=== PATIENT | female | born 1980 | race Caucasian/White ===

== ENCOUNTER → 2016-06-24 | Outpatient (REF) | payer OTHER ==
[~2016-06-24] MED LIST: FISH500C PO; OMEP20CA3 PO; PULM90IN INH; VITA100041 PO; VITMTA PO
== END ==
LOC: M LAB REF 10:12
PROVIDERS: ATTEND Physician Assistant
DX: J02.9 Acute pharyngitis, unspecified (principal)

== ENCOUNTER → 2016-07-21 | Outpatient (REF) | payer OTHER ==
[2016-07-21 11:42] LABS: ALBUMIN/GLOBULIN RATIO 1.14 (1.00-1.93); ALKALINE PHOSPHATASE 54 U/L (45-117); ALT/SGPT 22 U/L (12-78); ANION GAP 8 MEQ/L (8-16); AST/SGOT 13 U/L (15-37); BILIRUBIN,TOTAL 0.7 MG/DL (0.2-1.0); BLOOD UREA NITROGEN 8 MG/DL (7-18); CALCIUM LEVEL 9.3 MG/DL (8.5-10.1); CARBON DIOXIDE LEVEL 28 MEQ/L (21-32); CHLORIDE LEVEL 105 MEQ/L (98-107); CREATININE FOR GFR 0.77 MG/DL (0.55-1.02); GLOMERULAR FILTRATION RATE > 60.0 (>60); GLUCOSE, FASTING 99 MG/DL (70-105); POTASSIUM SERUM 4.2 MEQ/L (3.5-5.1); SODIUM LEVEL 141 MEQ/L (136-145); TOTAL PROTEIN 7.5 GM/DL (6.4-8.2)
== END ==
LOC: M SFHCPLAZ 09:37
PROVIDERS: ATTEND Nurse Practitioner Family
DX: I10 Essential (primary) hypertension (principal); E55.9 Vitamin D deficiency, unspecified

== ENCOUNTER → 2016-09-08 | Outpatient (CLI) | payer OTHER ==
[2016-09-08 14:44] LABS: BASO # 0.1 K/mm3 (0.0-0.2); EOS # 0.3 K/mm3 (0.0-0.50); EOS % 3.9 % (0.0-3.0); LARGE UNSTAINED CELL # 0.1 K/mm3 (0.0-0.4); LARGE UNSTAINED CELL % 1.4 % (0.0-4.0); LYMPH # 2.8 K/mm3 (1.5-4.5); LYMPH % 30.7 % (24.0-44.0); MEAN CORPUSCULAR HGB CONC 33.9 g/dl (32.0-36.5); MEAN CORPUSCULAR VOLUME 88.4 fl (80.0-96.0); MONO # 0.4 K/mm3 (0.0-0.8); MONO % 4.8 % (0.0-5.0); NEUTROPHILS # 5.1 K/mm3 (1.8-7.7); NEUTROPHILS % 58.2 % (36.0-66.0); PLATELET COUNT, AUTOMATED 259 k/mm3 (150-450); RED CELL DISTRIBUTION WIDTH 13.3 % (11.5-14.5); WHITE BLOOD COUNT 8.7 K/mm3 (4.0-10.0)
[2016-09-08 15:03] LABS: ANION GAP 7 MEQ/L (8-16); BLOOD UREA NITROGEN 15 MG/DL (7-18); CALCIUM LEVEL 8.8 MG/DL (8.5-10.1); CARBON DIOXIDE LEVEL 29 MEQ/L (21-32); CHLORIDE LEVEL 104 MEQ/L (98-107); CREATININE FOR GFR 0.77 MG/DL (0.55-1.02); GLOMERULAR FILTRATION RATE > 60.0 (>60); GLUCOSE, FASTING 92 MG/DL (70-105); POTASSIUM SERUM 3.8 MEQ/L (3.5-5.1); SODIUM LEVEL 140 MEQ/L (136-145)
== END ==
LOC: M LAB 14:01
PROVIDERS: ATTEND Nurse Practitioner Family
DX: K62.5 Hemorrhage of anus and rectum (principal)

== ENCOUNTER → 2016-09-08 | Outpatient (REF) | payer OTHER | LOC: M SFHCPLAZ 12:04 | PROVIDERS: ATTEND Nurse Practitioner Family | DX: K62.5 Hemorrhage of anus and rectum (principal) ==

== ENCOUNTER → 2017-07-26 | Outpatient (REF) | payer OTHER ==
[2017-07-26 13:24] LABS: ANION GAP 7 MEQ/L (8-16); BLOOD UREA NITROGEN 12 MG/DL (7-18); CALCIUM LEVEL 9.1 MG/DL (8.5-10.1); CARBON DIOXIDE LEVEL 27 MEQ/L (21-32); CHLORIDE LEVEL 107 MEQ/L (98-107); CREATININE FOR GFR 0.86 MG/DL (0.55-1.30); GLOMERULAR FILTRATION RATE > 60.0 (>60); GLUCOSE, FASTING 103 MG/DL (70-100); POTASSIUM SERUM 4.1 MEQ/L (3.5-5.1); SODIUM LEVEL 141 MEQ/L (136-145)
== END ==
LOC: M SFHCPLAZ 11:33
DX: I10 Essential (primary) hypertension (principal)

== ENCOUNTER → 2017-12-13 | Outpatient (REF) | payer OTHER ==
[2017-12-13 13:44] LABS: BASO % 0.7 % (0.0-1.0); EOS # 0.2 10^3/uL (0.0-0.50); EOS % 2.9 % (0.0-3.0); HEMATOCRIT 41.2 % (36.0-47.0); HEMOGLOBIN 13.7 g/dl (12.0-15.5); IMMATURE GRANULOCYTE % 0.2 % (0-3.0); LYMPH # 2.2 10^3/uL (1.5-4.5); LYMPH % 37.3 % (24.0-44.0); MEAN CORPUSCULAR HEMOGLOBIN 28.3 pg (27.0-33.0); MEAN CORPUSCULAR HGB CONC 33.3 g/dl (32.0-36.5); MEAN CORPUSCULAR VOLUME 85.1 fl (80.0-96.0); MONO # 0.5 10^3/uL (0.0-0.8); MONO % 8.8 % (0.0-5.0); NEUTROPHILS # 2.9 10^3/uL (1.8-7.7); NEUTROPHILS % 50.1 % (36.0-66.0); PLATELET COUNT, AUTOMATED 316 10^3/uL (150-450); RED BLOOD COUNT 4.84 10^6/uL (4.00-5.40); RED CELL DISTRIBUTION WIDTH 14.1 % (11.5-14.5); WHITE BLOOD COUNT 5.8 10^3/uL (4.0-10.0)
[2017-12-13 14:12] LABS: ALBUMIN 3.5 GM/DL (3.2-5.2); ALBUMIN/GLOBULIN RATIO 0.88 (1.00-1.93); ALKALINE PHOSPHATASE 57 U/L (45-117); ALT/SGPT 27 U/L (12-78); ANION GAP 7 MEQ/L (8-16); AST/SGOT 11 U/L (7-37); BILIRUBIN,TOTAL 0.4 MG/DL (0.2-1.0); BLOOD UREA NITROGEN 9 MG/DL (7-18); CALCIUM LEVEL 9.2 MG/DL (8.5-10.1); CARBON DIOXIDE LEVEL 28 MEQ/L (21-32); CHLORIDE LEVEL 107 MEQ/L (98-107); GLOMERULAR FILTRATION RATE > 60.0 (>60); GLUCOSE, FASTING 115 MG/DL (70-100); POTASSIUM SERUM 4.2 MEQ/L (3.5-5.1); SODIUM LEVEL 142 MEQ/L (136-145); TOTAL PROTEIN 7.5 GM/DL (6.4-8.2)
== END ==
LOC: M SFHCPLAZ 12:34
DX: N73.9 Female pelvic inflammatory disease, unspecified (principal)

== ENCOUNTER → 2017-12-13 | Outpatient (REF) | payer OTHER ==
[2017-12-13 17:45] LABS: CHLAMYDIA DNA AMPLIFICATION NEGATIVE (NEGATIVE); GC DNA AMPLIFICATION NEGATIVE (NEGATIVE)
== END ==
LOC: M SFHCPLAZ 15:13
DX: N73.9 Female pelvic inflammatory disease, unspecified (principal)
CPT/HCPCS: 87086

== ENCOUNTER → 2017-12-13 | Outpatient (CLI) | payer OTHER ==
[~2017-12-13] MED LIST changes: -FISH500C PO; +GASTROGRAFIN SOLUTION 30ML (Q9963) As Ordered; +ISOVUE-370 76% 100ML VIAL (Q9967) As Ordered; -OMEP20CA3 PO; -PULM90IN INH; -VITA100041 PO; -VITMTA PO
== END ==
LOC: M RAD 14:03
DX: R10.2 Pelvic and perineal pain (principal)
CPT/HCPCS: Q9963

== ENCOUNTER → 2017-12-14 | Outpatient (REF) | payer OTHER | LOC: M LAB REF 09:52 | DX: R19.7 Diarrhea, unspecified (principal) | CPT/HCPCS: 87507 ==

== ENCOUNTER → 2018-01-25 | Outpatient (CLI) | payer OTHER | LOC: M RAD 09:37 | DX: N83.202 Unspecified ovarian cyst, left side (principal) | CPT/HCPCS: 76856 ==

== ENCOUNTER → 2018-02-17 | Outpatient (REF) | payer OTHER ==
[2018-02-17 12:59] LABS: ESTIMATED AVERAGE GLUCOSE 117 MG/DL (60-110); HEMOGLOBIN A1c 5.7 %
[2018-02-17 15:48] LABS: ALBUMIN 4.3 GM/DL (3.2-5.2); ALKALINE PHOSPHATASE 50 U/L (45-117); ALT/SGPT 25 U/L (12-78); ANION GAP 9 MEQ/L (8-16); AST/SGOT 12 U/L (7-37); BILIRUBIN,TOTAL 0.8 MG/DL (0.2-1.0); BLOOD UREA NITROGEN 10 MG/DL (7-18); CALCIUM LEVEL 9.4 MG/DL (8.5-10.1); CARBON DIOXIDE LEVEL 25 MEQ/L (21-32); CHLORIDE LEVEL 106 MEQ/L (98-107); CHOLESTEROL LEVEL 210 MG/DL (<200); CHOLESTEROL RISK RATIO 4.666 (<5); CREATININE FOR GFR 0.74 MG/DL (0.55-1.30); GLOMERULAR FILTRATION RATE > 60.0 (>60); GLUCOSE, FASTING 103 MG/DL (70-100); HDL CHOLESTEROL 45 MG/DL (>40); LDL CHOLESTEROL 120 MG/DL (<100); NON-HDL-C 165 MG/DL; POTASSIUM SERUM 4.4 MEQ/L (3.5-5.1); SODIUM LEVEL 140 MEQ/L (136-145); TOTAL 25(OH) VITAMIN D 29.6 NG/ML (30.0-100.0); TOTAL PROTEIN 7.6 GM/DL (6.4-8.2); TRIGLYCERIDES LEVEL 225 MG/DL (<150)
== END ==
LOC: M SFHCPLAZ 08:40
DX: I10 Essential (primary) hypertension (principal); Z83.3 Family history of diabetes mellitus; E66.9 Obesity, unspecified
CPT/HCPCS: 80053

== ENCOUNTER → 2018-06-19 | Outpatient (REF) | payer OTHER ==
[~2018-06-19] MED LIST changes: +FISH500C PO; -GASTROGRAFIN SOLUTION 30ML (Q9963) As Ordered; +IBUP-1022 PO; -ISOVUE-370 76% 100ML VIAL (Q9967) As Ordered; +LISI10TA4 PO; +OMEP20CA3 PO; +PULM90IN INH; +TYLE325T5 PO; +VITA-182 PO; +VITMTA PO
== END ==
LOC: M LAB REF 17:19
PROVIDERS: ATTEND Obstetrics & Gynecology
DX: N93.9 Abnormal uterine and vaginal bleeding, unspecified (principal)

== ENCOUNTER 2018-07-24 07:55 | Day surgery (SDC) | payer OTHER ==
[~2018-07-24] VITALS: Ht 157.5 cm; Wt 85.0 kg
[2018-07-24] VITALS (8 sets, daily range): BP systolic 124–132; BP diastolic 69–86; O2SAT 95
[~2018-07-24 07:55] MED LIST changes: +LIDOCAINE 1% MDV 20ML VIAL SQ PRN; +LR 1,000 ML IV ONE
[2018-07-24 08:26] LABS: HEMATOCRIT 39.9 % (36.0-47.0); HEMOGLOBIN 13.1 g/dl (12.0-15.5); MEAN CORPUSCULAR HEMOGLOBIN 28.2 pg (27.0-33.0); MEAN CORPUSCULAR HGB CONC 32.8 g/dl (32.0-36.5); MEAN CORPUSCULAR VOLUME 85.8 fl (80.0-96.0); PLATELET COUNT, AUTOMATED 286 10^3/uL (150-450); RED BLOOD COUNT 4.65 10^6/uL (4.00-5.40); WHITE BLOOD COUNT 7.7 10^3/uL (4.0-10.0)
[2018-07-24] MEDS ORDERED: fentaNYL 250 MCG/5 ML INJECTION (J3010) As Ordered ONE (08:34)
[2018-07-24] MEDS ORDERED: MIDAZOLAM INJ 2 MG/2 ML VIAL (J2250) As Ordered ONE (08:34)
[2018-07-24] MEDS ORDERED: PROPOFOL 200 MG/20 ML VIAL As Ordered ONE (08:34)
[2018-07-24] MEDS ORDERED: LIDOCAINE 2% INJ 100 MG/5 ML SDV (FOR ANES.) As Ordered ONE (08:34)
[2018-07-24] MEDS ORDERED: ROCURONIUM BROMIDE 50 MG/5 ML VIAL As Ordered ONE ×2 (08:34→11:14)
[2018-07-24 09:20] LABS: HCG, SERUM QUALITATIVE NEGATIVE (NEGATIVE)
[2018-07-24] MEDS ORDERED: BUPIVACAINE HCL 0.25% 30 ML VIAL As Ordered ONE (10:24)
[2018-07-24] MEDS ORDERED: METHYLENE BLUE 0.5% (5MG/ML) 10 ML AMP (PROVAYBLUE)(Q9968 PER 1MG) As Ordered ONE (10:24)
[2018-07-24] MEDS ORDERED: dexameTHASONE 4 MG/ML 1ML VIAL (J1100) As Ordered ONE (10:38)
[2018-07-24] MEDS ORDERED: HYDROmorphone HCL 2 MG/ML 1ML VIAL (J1170) As Ordered ONE (10:53)
[2018-07-24] MEDS ORDERED: METOCLOPRAMIDE INJ 10MG/2ML VIAL (J2765) As Ordered ONE (11:12)
[2018-07-24] MEDS ORDERED: KETOROLAC 60 MG/2 ML VIAL (J1885) As Ordered ONE (11:13)
[2018-07-24] MEDS ORDERED: ONDANSETRON 4MG/2ML VIAL (J2405) As Ordered ONE (11:13)
[2018-07-24] MEDS ORDERED: GLYCOPYRROLATE INJ 0.2 MG/ML 2 ML VIAL As Ordered ONE (11:13)
--- NOTE | 2018-07-24 13:13 | NUR ---
Operative Note DATE OF PROCEDURE: 07/24/2018 PREOPERATIVE DIAGNOSIS: 1. Abnormal uterine bleeding. POSTOPERATIVE DIAGNOSIS: 1. Abnormal uterine bleeding. 2. Endometriosis PROCEDURE PERFORMED: Robotic-assisted total laparoscopic hysterectomy, bilateral salpingectomy and cystoscopy. SURGEON: Jalil Moctezuma DO. ELECTRIC SCREW DRIVER OPERATOR: RUSH Goff (needed for uterine manipulation). ANESTHESIA: General endotracheal. SPECIMENS TO PATHOLOGY: Uterus, cervix with bilateral fallopian tubes ESTIMATED BLOOD LOSS: 50 mL. FLUIDS REPLACED: 1.6 liters lactated Ringer's. DRAINS: Clements catheter 200 mL. COMPLICATIONS: None. PREOPERATIVE ANTIBIOTICS: Ancef 2g IV x 1 (administered within 30 minutes of procedure start time) INTRAOPERATIVE FINDINGS: Uterus was approximately cm in greatest dimension. The uterus was of normal shape/contour (no leiomyomas). The right and left ovaries were normal in appearance. Endometriosis was found in the anterior cul-de-sac along the surface of the cervix. Both fallopian tube proximal segments were filled with endometriotic fluid. Cystoscopic findings: No bladder injury. No suture material. Bilateral ureteral orifice efflux visualized after IV infusion of methylene blue. INDICATION: Abnormal uterine bleeding, declining further medical management or more conservative surgical management (i.e endometrial ablation) PROCEDURE: The patient was counseled and consented on the risks, benefits, indications, and alternatives of the procedure. Informed consent was obtained. She was take n to the operating room with an IV running and placed on the operating table in the dorsal supine position. General anesthesia was administered and airway secured without any difficulty. The patient was placed in a level horizontal low lithotomy position. She was prepped and draped in a normal sterile fashion. A time-out was performed per protocol. A Clements catheter was placed under sterile conditions. A sterile speculum was placed into the vagina with go od visualization of the cervix. The anterior lip of the cervix was grasped with a single-tooth tenaculum and downward traction was applied. The uterus was sounded to 10 cm. The cervix was sequentially dilated with Emory dilators up to #16. The anterior and posterior lip were tagged with and interrupted stitch using #0 Vicryl suture. The VCare uterine manipulator was placed in typical fashion without any difficulty. The single-toothed tenaculum was removed. The sterile speculum was removed. The VCare uterine manipulator was noted to be adequately in place. A glove switch was performed. Attention was turned to the abdomen. A 2 mm umbilical incision was made with the 11 blade. The Veress needle was placed through this incision into the intraperitoneal cavity. Intraperitoneal placement was confirmed with the following checks: no resistance/ease of flow of normal saline from the attached syringe through the Veress needle, no return of blood/fluid/succus upon aspirating with the attached syringe, a positive drop test, and the opening pressure during insufflation was less than 10 mmHg. The abdomen was insufflated with 2.5 liters of gas. The Veress needle was removed. An 8 mm horizontal midline, supraumbilical incision was made with the 11 blade. Through this incision, a size 8 mm laparoscopic trocar was placed under direct visualization technique into the intraperitoneal cavity. Intraperitoneal placement was confirmed. The patient was placed in a low lithotomy steep Trendelenberg position. The right and left lower quadrant port sites were placed via 8 mm incisions using the 11 blade. The 8 mm da Regis cannulas were placed under laparoscopic guidance on both sides. Given the successful placement of all the DaVinci cannulas, the robot was easily side-docked. Attention was turned to the Optracei robotic console. The right and left distal fallopian tubes were identified and excised with the Da Regis vessel sealer instrument, thus removing both fimbriated ends of each fallopian tube. These specimens were brought through the accessory cannula and sent to pathology for permanent section. The right fallopian tube, utero-ovarian ligament, and round ligament were sequentially clamped, coagulated and transected with the DaVinci vessel sealer device. The Da Regis vessel sealer was used to dissect and mobilize the right-sided half of the vesicouterine peritoneum/"bladder flap" with both blunt and bipolar dissection. The right uterine vasculature was skeletonized and identified. Excellent hemostasis was achieved. The left fallopian tube, utero-ovarian ligament and round ligament were sequentially clamped, coagulated and transected using the Da Regis vessel sealer device. The left uterine vasculature was skeletonized and easily identified. Excellent hemostasis was noted. The remainder of the vesicouterine peritoneum was dissected and mobilized along the anterior portion of the VCare uterine manipulator cup in order to complete the bladder flap. This resulted in adequate mobilization/displacement of the bladder away from the cervix. During all of the dissection described above, an occasional small bleeding vessel needed to be cauterized with the DaVinci bipolar forceps. The right and left uterine vasculature were sequentially clamped, coagulated and transected with both DaVinci bipolar forceps and vessel sealer instruments. Excellent blanching of the uterus was noted, thus indicating that the blood supply to the uterus was obliterated. Excellent hemostasis was noted. The DaVinci monopolar bryan were used to create the circumferential colpotomy around the VCare cervical cup border. Incidental small bleeding vaginal vessels were cauterized with the DaVinci bipolar forceps. This circumferential incision was completed and the uterus with the cervix was noted to be fully amputated as one unit. This specimen was brought through the colpotomy into the vagina, and ultimately removed and sent to pathology for permanent section. The vaginal cuff was closed in running fashion with V-Loc suture. Excellent hemostasis of the vaginal cuff was noted. The lower abdomen/pelvis was irrigated and suctioned, thus removing all blood and clot. Excellent hemostasis was noted. Pranay was placed over the surgical sites to maintain hemostasis. The insufflation gas was released from the intraperitoneal cavity. All cannula s were removed. The robot was un-docked without any difficulty. The patient was taken out of steep Trendelenburg and placed back into a level horizontal low lithotomy position. The Clements catheter was removed. A 30 degree cystoscope was placed transurethrally into the bladder. The entire bladder mucosa was examined. There was no evidence of a bladder injury or suture material. Brisk bilateral ureteral orifice efflux of urine was visualized after IV infusion of methylene blue. The cystoscope was removed and the Clements catheter was replaced. The vagina was copiously irrigated. The vaginal cuff was palpated and noted to be intact. The sponge, needle, and instrument counts were correct. A glove switch was performed. Attention was turned back to the abdomen. Patient was taken out of T renatrium [place]. The gas was released from the abdomen. The cannulas were all removed. Each skin incision was closed with #4-0 Monocryl in subcuticular fashi on and reinforced with Dermabond. Sponge, needle, and instrument counts were again correct. The patient tolerated the entire procedure well. She was transferred to the postanesthesia care unit in good and stable condition. Nancy Moctezuma DO
[2018-07-24] MEDS ORDERED: PERCOCET 5MG/325MG TAB PO PRN ×2 (13:15→15:00)
[2018-07-24] MEDS ORDERED: HYDROMORPHONE HCL 0.5 MG/ 0.5 ML SYRINGE (J1170 PER 1) IV PRN (13:15)
[2018-07-24] MEDS ORDERED: fentaNYL 100 MCG/2 ML INJECTION (J3010) IV PRN (13:15)
[2018-07-24] MEDS ORDERED: LR 1,000 ML IV SCH (13:15)
[2018-07-24] MEDS ORDERED: ONDANSETRON 4MG/2ML VIAL (J2405) IV PRN ×2 (13:15→15:00)
[2018-07-24] MEDS ORDERED: PROMETHAZINE INJ 25 MG/ML VIAL (J2550) IV PRN (15:00)
[2018-07-24] MEDS: LR 1,000 ML IV SCH ×2 (15:23→23:00)
[2018-07-24] MEDS: PERCOCET 5MG/325MG TAB PO PRN (16:57)
[2018-07-24] MEDS: KETOROLAC 30 MG/ML VIAL (J1885) IV SCH (18:45)
[2018-07-24] MEDS: OMEPRAZOLE 20 MG CAP PO SCH (20:18)
[2018-07-24] MEDS: DOCUSATE SODIUM 100 MG CAP PO SCH (20:18)
[2018-07-25] MEDS: KETOROLAC 30 MG/ML VIAL (J1885) IV SCH ×2 (00:49→05:54)
[2018-07-25] MEDS: PERCOCET 5MG/325MG TAB PO PRN ×2 (00:50→05:54)
[2018-07-25 02:00] VITALS: BP 128/72
[2018-07-25 06:00] VITALS: BP 117/67
[2018-07-25] MEDS: LR 1,000 ML IV SCH (07:00)
[2018-07-25 07:06] LABS: BASO # 0.1 10^3/uL (0.0-0.2); BASO % 0.6 % (0.0-1.0); EOS # 0.1 10^3/uL (0.0-0.50); EOS % 0.8 % (0.0-3.0); LYMPH # 2.9 10^3/uL (1.5-4.5); LYMPH % 28.1 % (24.0-44.0); MEAN CORPUSCULAR HEMOGLOBIN 27.5 pg (27.0-33.0); MEAN CORPUSCULAR HGB CONC 32.5 g/dl (32.0-36.5); MEAN CORPUSCULAR VOLUME 84.7 fl (80.0-96.0); MONO # 0.8 10^3/uL (0.0-0.8); MONO % 8.1 % (0.0-5.0); NEUTROPHILS # 6.4 10^3/uL (1.8-7.7); NEUTROPHILS % 62.2 % (36.0-66.0); PLATELET COUNT, AUTOMATED 235 10^3/uL (150-450); RED BLOOD COUNT 3.78 10^6/uL (4.00-5.40); WHITE BLOOD COUNT 10.3 10^3/uL (4.0-10.0)
[2018-07-25 07:09] LABS: HEMOGLOBIN 10.4 g/dl (12.0-15.5)
[2018-07-25 08:39] VITALS: BP 117/67
[2018-07-25] MEDS: OMEPRAZOLE 20 MG CAP PO SCH (08:39)
[2018-07-25] MEDS: DOCUSATE SODIUM 100 MG CAP PO SCH (08:39)
[2018-07-25] MEDS ORDERED: LISINOPRIL 10 MG TAB PO SCH (09:00)
[2018-07-25] MEDS ORDERED: PERC5TAB12 PO (09:35)
[2018-07-25] MEDS ORDERED: PERCOCET PO (09:36)
[2018-07-25] MEDS ORDERED: IBUP80TA PO (09:37)
[2018-07-25] MEDS ORDERED: COLA100C5 PO (09:37)
[2018-07-25] MEDS ORDERED: IBUPROFEN 800 MG TAB PO SCH (21:00)
== END 2018-07-25 10:40 | disposition home or self-care (01) ==
LOC: M SDC 07:55 → M MS5PR 14:05 → M SDC 07-25 10:40
PROVIDERS: ATTEND Obstetrics & Gynecology
DX: N92.6 Irregular menstruation, unspecified (principal); N80.0 Endometriosis of uterus; I10 Essential (primary) hypertension; K21.9 Gastro-esophageal reflux disease without esophagitis; Z88.0 Allergy status to penicillin; Z79.899 Other long term (current) drug therapy
CPT/HCPCS: 36415; 58571; 84703; 85025; 85027; 86850; 86900; 86901; 88307; 96374; 96375; 96376; J0690; J1100; J1170; J1885; J2250; J2405; J2765; J3010; Q9968

== ENCOUNTER → 2018-08-28 | Outpatient (CLI) | payer OTHER ==
[~2018-08-28] MED LIST changes: +COLA100C5 PO; +IBUP80TA PO; -LIDOCAINE 1% MDV 20ML VIAL SQ PRN; -LR 1,000 ML IV ONE; +PERC5TAB12 PO; +PERCOCET PO
[2018-08-28 13:04] LABS: ALT/SGPT 23 U/L (12-78); BILIRUBIN,TOTAL 0.6 MG/DL (0.2-1.0); BLOOD UREA NITROGEN 9 MG/DL (7-18); CALCIUM LEVEL 8.7 MG/DL (8.5-10.1); CARBON DIOXIDE LEVEL 26 MEQ/L (21-32); CHLORIDE LEVEL 108 MEQ/L (98-107); CHOLESTEROL LEVEL 190 MG/DL (<200); CHOLESTEROL RISK RATIO 4.318 (<5); CREATININE FOR GFR 0.85 MG/DL (0.55-1.30); FREE T4 1.14 NG/DL (0.76-1.46); GLOMERULAR FILTRATION RATE > 60.0 (>60); GLUCOSE, FASTING 109 MG/DL (70-100); HDL CHOLESTEROL 44 MG/DL (>40); LDL CHOLESTEROL 130 MG/DL (<100); NON-HDL-C 146 MG/DL; POTASSIUM SERUM 4.3 MEQ/L (3.5-5.1); SODIUM LEVEL 138 MEQ/L (136-145); THYROID STIMULATING HORMONE 0.711 uIU/ML (0.358-3.740); TOTAL PROTEIN 7.2 GM/DL (6.4-8.2); TRIGLYCERIDES LEVEL 81 MG/DL (<150)
[2018-08-28 14:04] LABS: TOTAL 25(OH) VITAMIN D 32.1 NG/ML (30.0-100.0)
[2018-08-28 14:12] LABS: HEMOGLOBIN A1c 6.2 %
== END ==
LOC: M WUC 09:09
PROVIDERS: ATTEND Nurse Practitioner Family
DX: I10 Essential (primary) hypertension (principal); E88.81 Metabolic syndrome and other insulin resistance

== ENCOUNTER → 2018-11-24 | Outpatient (CLI) | payer OTHER ==
[~2018-11-24] MED LIST changes: -OMEP20CA3 PO; +OMEP20CA4 PO
[2018-11-24 13:40] LABS: HEMOGLOBIN A1c 6.2 %
[2018-11-24 13:46] LABS: BLOOD UREA NITROGEN 9 MG/DL (7-18); CALCIUM LEVEL 8.9 MG/DL (8.5-10.1); CARBON DIOXIDE LEVEL 27 MEQ/L (21-32); CHLORIDE LEVEL 107 MEQ/L (98-107); CREATININE FOR GFR 0.84 MG/DL (0.55-1.30); GLOMERULAR FILTRATION RATE > 60.0 (>60); GLUCOSE, FASTING 89 MG/DL (70-100); POTASSIUM SERUM 4.3 MEQ/L (3.5-5.1); SODIUM LEVEL 142 MEQ/L (136-145)
[2018-11-24 17:47] LABS: MALB URINE SIEMENS 9.6 MG/L; MAU/CREAT RATIO 7.8 MCG/MG (0.0-30.0)
== END ==
LOC: M WUC 08:45
PROVIDERS: ATTEND Nurse Practitioner Family
DX: R73.03 Prediabetes (principal); I10 Essential (primary) hypertension

== ENCOUNTER → 2019-02-28 | Outpatient (CLI) | payer OTHER ==
[2019-02-28 19:17] LABS: BLOOD UREA NITROGEN 12 MG/DL (7-18); CALCIUM LEVEL 9.1 MG/DL (8.5-10.1); CARBON DIOXIDE LEVEL 29 MEQ/L (21-32); CHLORIDE LEVEL 105 MEQ/L (98-107); CREATININE FOR GFR 0.84 MG/DL (0.55-1.30); GLOMERULAR FILTRATION RATE > 60.0 (>60); GLUCOSE, FASTING 94 MG/DL (70-100); POTASSIUM SERUM 4.1 MEQ/L (3.5-5.1); SODIUM LEVEL 138 MEQ/L (136-145)
[2019-02-28 19:29] LABS: TOTAL 25(OH) VITAMIN D 35.6 NG/ML (30.0-100.0)
== END ==
LOC: M LAB 16:50
PROVIDERS: ATTEND Nurse Practitioner Family
DX: E55.9 Vitamin D deficiency, unspecified (principal); I10 Essential (primary) hypertension; R73.03 Prediabetes

== ENCOUNTER → 2019-03-08 | Outpatient (CLI) | payer OTHER ==
[2019-03-08 20:04] LABS: HEMOGLOBIN A1c 5.9 %
== END ==
LOC: M LAB 18:18
PROVIDERS: ATTEND Nurse Practitioner Family
DX: E55.9 Vitamin D deficiency, unspecified (principal); I10 Essential (primary) hypertension; R73.03 Prediabetes

== ENCOUNTER 2019-05-30 19:34 | Day surgery (SDC) | payer OTHER ==
[~2019-05-30] VITALS: Ht 157.5 cm; Wt 81.1 kg
[~2019-05-30 19:34] MED LIST changes: +OMEP1CAP73 PO; -OMEP20CA4 PO
[2019-05-30] MEDS ORDERED: DOXY100C37 (19:47)
[2019-05-30] MEDS ORDERED: GLUCAGON FOR INJ 1 MG VIAL (J1610) IV STA (22:10)
[2019-05-30] MEDS ORDERED: ALBUTEROL 90 MCG/ACT 8GM HFA INHALER INH ONE (23:30)
[2019-05-31] MEDS ORDERED: LIDOCAINE 2% INJ 100 MG/5 ML SDV (FOR ANES.) As Ordered ONE (00:20)
[2019-05-31] MEDS ORDERED: propofoL 200 MG/20 ML VIAL As Ordered ONE (00:20)
[2019-05-31] MEDS ORDERED: SUCCINYLCHOLINE 100 MG/5 ML SYRINGE (J0330) As Ordered ONE (00:20)
[2019-05-31] MEDS ORDERED: ONDANSETRON 4MG/2ML VIAL (J2405) As Ordered ONE (00:20)
[2019-05-31] MEDS ORDERED: ROCURONIUM BROMIDE 50 MG/5 ML VIAL As Ordered ONE (00:20)
[2019-05-31] MEDS ORDERED: MIDAZOLAM INJ 2 MG/2 ML VIAL (J2250) As Ordered ONE (00:21)
[2019-05-31] MEDS ORDERED: fentaNYL 100 MCG/2 ML INJECTION (J3010) As Ordered ONE (00:21)
[2019-05-31] MEDS ORDERED: DOXY100C37 PO (01:00)
[2019-05-31] MEDS ORDERED: LISI10TA4 PO (01:00)
[2019-05-31] MEDS ORDERED: FLON1SPR (01:01)
[2019-05-31] MEDS ORDERED: ONDANSETRON 4MG/2ML VIAL (J2405) IV PRN (01:30)
[2019-05-31] MEDS ORDERED: LR 1,000 ML IV SCH (01:30)
[2019-05-31] MEDS ORDERED: METOCLOPRAMIDE INJ 10MG/2ML VIAL (J2765) IV PRN (01:30)
[2019-05-31 02:00] VITALS: BP 128/84
[2019-05-31] MEDS ORDERED: OMEPRAZOLE 20 MG CAP PO SCH (09:00)
--- NOTE | 2019-05-31 12:18 | REP ---
Clinical: Foreign body. Technique: Three soft tissue neck radiographs. Findings: The visualized airway, surrounding soft tissues and osseous structures appear normal. No obvious injury. No obvious foreign body. No subcutaneous emphysema. Focal moderate degenerative spondylosis at C5-6 and C6-7. Impression: No foreign body. Electronically Signed by Gregorio Watikns MD 05/31/2019 12:10 P
--- NOTE | 2019-05-31 18:53 | ROOR ---
Patient Name: Jasmine Linda Procedure Date: 05/31/2019 12:51 AM Date of : 1980 Age: 39 Gender: Female Note Status: Finalized Procedure: Upper GI endoscopy Indications: Foreign body in the esophagus Providers: Jeffery Aguirre MD Referring MD: Reid ROSADO MD Requesting Provider: Medicines: Monitored Anesthesia Care Complications: No immediate complications. Procedure: Pre-Anesthesia Assessment: - The heart rate, respiratory rate, oxygen saturations, blood pressure, adequacy of pulmonary ventilation, and response to care were monitored throughout the procedure. The Endoscope was introduced through the mouth, and advanced to the second part of duodenum. The upper GI endoscopy was accomplished without difficulty. The patient tolerated the procedure well. Findings: Food was found in the proximal esophagus. Removal of food was accomplished. Meat bolus was pushed into the stomach from 25 cms. Mucosal changes including ringed esophagus were found in the entire esophagus. Esophageal findings were graded using the Eosinophilic Esophagitis Endoscopic Reference Score (EoE-EREFS) as: Rings Grade 2 Moderate (distinct rings that do not occlude passage of diagnostic 8-10 mm endoscope), Exudates Grade 0 None (no white lesions seen) and Furrows Grade 0 None (no vertical lines seen). No other significant abnormalities were identified in a careful examination of the stomach. The exam of the duodenum was otherwise normal. Impression: - Food in the proximal esophagus. Removal was successful. - Esophageal mucosal changes consistent with eosinophilic esophagitis. - The examination was otherwise normal. Recommendation: - Patient has a contact number available for emergencies. The signs and symptoms of potential delayed complications were discussed with the patient. Return to normal activities tomorrow. Written discharge instructions were provided to the patient. - Discharge patient to home. - Follow an antireflux regimen. - Use Prilosec (omeprazole) 20 mg PO daily. OTC until able to see Dr. Rosado - Return to referring physician. - Soft diet. - Repeat upper endoscopy at appointment to be scheduled for retreatment. Suggest Balloon Dilatation - The findings and recommendations were discussed with the patient's family. Jeffery Aguirre MD Jeffery Aguirre MD 05/31/2019 6:53:42 PM Electronically signed by Jeffery Aguirre MD Number of Addenda: 0 Note Initiated On: 05/31/2019 12:51 AM Estimated Blood Loss: Estimated blood loss: none.
== END 2019-05-31 03:01 | disposition home or self-care (01) ==
LOC: M ED 19:34 → M SDC 19:35 → ENRESERVDT 05-31 01:31 → ENRESERVTM 05-31 01:31 → M MS5PR 05-31 02:00 → M SDC 05-31 03:01
PROVIDERS: ATTEND Internal Medicine Gastroenterology
DX: T18.128A Food in esophagus causing other injury, initial encounter (principal); K22.8 Other specified diseases of esophagus; I10 Essential (primary) hypertension; Z79.899 Other long term (current) drug therapy; Z88.0 Allergy status to penicillin; Y92.89 Other specified places as the place of occurrence of the external cause
CPT/HCPCS: 43247; 70360; 99284; J0330; J1610; J2250; J2405; J3010

== ENCOUNTER → 2019-06-27 | Outpatient (CLI) | payer OTHER ==
[~2019-06-27] MED LIST changes: +DOXY100C37; +DOXY100C37 PO; +FLON1SPR
[2019-06-27 12:12] LABS: FREE T4 1.25 NG/DL (0.76-1.46); THYROID STIMULATING HORMONE 0.912 uIU/ML (0.358-3.740)
== END ==
LOC: M LAB 10:20
PROVIDERS: ATTEND Internal Medicine Gastroenterology
DX: K20.0 Eosinophilic esophagitis (principal); R19.7 Diarrhea, unspecified

== ENCOUNTER → 2019-08-30 | Outpatient (REF) | payer OTHER ==
[2019-08-30 12:42] LABS: ALT/SGPT 31 U/L (12-78); BILIRUBIN,TOTAL 0.8 MG/DL (0.2-1.0); BLOOD UREA NITROGEN 15 MG/DL (7-18); CARBON DIOXIDE LEVEL 25 MEQ/L (21-32); CHLORIDE LEVEL 107 MEQ/L (98-107); GLOMERULAR FILTRATION RATE > 60.0 (>60); GLUCOSE, FASTING 116 MG/DL (70-100); POTASSIUM SERUM 4.3 MEQ/L (3.5-5.1); SODIUM LEVEL 139 MEQ/L (136-145); TRIGLYCERIDES LEVEL 139 MG/DL (<150)
[2019-08-30 12:43] LABS: CHOLESTEROL LEVEL 200 MG/DL (<200); CHOLESTEROL RISK RATIO 4.878 (<5); HDL CHOLESTEROL 41 MG/DL (>40); LDL CHOLESTEROL 131 MG/DL (<100); NON-HDL-C 159 MG/DL; THYROID STIMULATING HORMONE 0.577 uIU/ML (0.358-3.740); TOTAL PROTEIN 7.4 GM/DL (6.4-8.2)
[2019-08-30 13:06] LABS: MALB URINE SIEMENS 7.4 MG/L; MAU/CREAT RATIO 6.4 MCG/MG (0.0-30.0)
[2019-08-30 14:29] LABS: HEMOGLOBIN A1c 5.7 %
== END ==
LOC: M PLALAB 08:40
PROVIDERS: ATTEND Nurse Practitioner Family
DX: I10 Essential (primary) hypertension (principal); R73.03 Prediabetes; E88.81 Metabolic syndrome and other insulin resistance; E55.9 Vitamin D deficiency, unspecified

== ENCOUNTER → 2019-11-14 | Outpatient (CLI) | payer OTHER ==
[~2019-11-14] MED LIST changes: +IBUP200T45 PO; +MAPA500T2 PO; +MULTCAP PO; +OMEP10CASR PO
== END ==
LOC: M LABSMTC 11:08
PROVIDERS: ATTEND Anesthesiology
DX: Z01.818 Encounter for other preprocedural examination (principal); Z11.59 Encounter for screening for other viral diseases; Z20.828 Contact with and (suspected) exposure to other viral communicable diseases

== ENCOUNTER 2019-12-04 12:28 | Day surgery (SDC) | payer OTHER ==
[2019-12-04] MEDS ORDERED: propofoL 200 MG/20 ML VIAL As Ordered ONE (13:33)
[2019-12-04] MEDS ORDERED: ONDANSETRON 4MG/2ML VIAL As Ordered ONE (13:35)
--- NOTE | 2020-01-02 11:34 | ROOR ---
Patient Name: Jasmine Linda Procedure Date: 12/04/2019 11:34 AM Date of : 1980 Age: 39 Room: [facility] Gender: Female Note Status: Finalized Procedure: Colonoscopy Indications: Clinically significant diarrhea of unexplained origin, Suspected irritable bowel syndrome Providers: Reid ROSADO MD Referring MD: Elsy Simmons NP Requesting Provider: Medicines: Monitored Anesthesia Care Complications: No immediate complications. Procedure: Pre-Anesthesia Assessment: - The heart rate, respiratory rate, oxygen saturations, blood pressure, adequacy of pulmonary ventilation, and response to care were monitored throughout the procedure. The Colonoscope was introduced through the anus and advanced to 10 cm into the ileum. The colonoscopy was performed without difficulty. The patient tolerated the procedure well. The quality of the bowel preparation was good. Findings: The perianal and digital rectal examinations were normal. A few small-mouthed diverticula were found in the sigmoid colon and ascending colon. Small Internal Hemorrhoids. The exam was otherwise without abnormality on direct and retroflexion views. Biopsies for histology were taken with a cold forceps for evaluation of microscopic colitis. Impression: - Diverticulosis in the sigmoid colon and in the ascending colon. - Small Internal Hemorrhoids. - The colon and treminal ileum was otherwise normal on direct and retroflexion views. - Biopsies were taken with a cold forceps for evaluation of microscopic colitis. Recommendation: - Continue present medications. - Telephone endoscopist for pathology results in 2 weeks. Reid Rosado MD Reid ROSADO MD 12/04/2019 1:45:09 PM Number of Addenda: 0 Note Initiated On: 12/04/2019 11:34 AM Estimated Blood Loss: Estimated blood loss: none.
== END 2019-12-04 14:15 | disposition home or self-care (01) ==
LOC: M SDC 12:28
PROVIDERS: ATTEND Internal Medicine Gastroenterology
DX: K57.30 Diverticulosis of large intestine without perforation or abscess without bleeding (principal); K64.8 Other hemorrhoids; K20.0 Eosinophilic esophagitis; D13.1 Benign neoplasm of stomach; R13.10 Dysphagia, unspecified; K22.8 Other specified diseases of esophagus; I10 Essential (primary) hypertension; E11.9 Type 2 diabetes mellitus without complications; Z79.899 Other long term (current) drug therapy; Z88.0 Allergy status to penicillin; Z91.018 Allergy to other foods; Z87.891 Personal history of nicotine dependence
CPT/HCPCS: 43239; 45380; 88305; J2405

== ENCOUNTER → 2020-07-01 | Outpatient (CLI) | payer OTHER ==
[~2020-07-01] MED LIST changes: +LISI10TA22 PO; -LISI10TA4 PO
--- NOTE | 2020-07-01 08:25 | REP ---
INDICATION: RUQ PAIN COMPARISON: Correlation with CT dated 12/13/2017 TECHNIQUE: Real time holcomb scale ultrasound examination using curved array transducer. FINDINGS: Liver includes 2.2 cm hypoechoic solid lesion in the left lobe which cannot be further characterized by ultrasound. Remainder of the liver appears relatively normal. Pancreas is pancreas is normal. The gallbladder demonstrates odai-pska-irtlmm ([place]) sign consistent with cholelithiasis and very mild pericholecystic stranding cannot be excluded. No biliary ductal dilatation is appreciated and the common bile duct measures 5.6 mm diameter. Right kidney is normal in reniform shape without hydronephrosis and measures 11.6 x 5.4 x 5.5 cm. No ascites in the visualized right upper quadrant. IMPRESSION: 1. Suspicious 2.2 cm lesion in the liver. Consider pre and postcontrast CT or MRI of the abdomen for further investigation. 2. Cholelithiasis and early acute cholecystitis cannot definitively be excluded. <Electronically signed by Gregorio Watkins > 07/01/20 [id number]
== END ==
LOC: M RAD 07:34
PROVIDERS: ATTEND Internal Medicine Gastroenterology
DX: D37.6 Neoplasm of uncertain behavior of liver, gallbladder and bile ducts (principal); R10.11 Right upper quadrant pain; K80.20 Calculus of gallbladder without cholecystitis without obstruction

== ENCOUNTER → 2020-07-08 | Outpatient (CLI) | payer OTHER ==
--- NOTE | 2020-07-08 16:59 | REP ---
INDICATION: NEOPLASM OF GALLBLADER/LIVER/BILE DUCT. COMPARISON: Comparison is made with sonography from July 01, 2020, CT abdomen and pelvis studies dated December 13, 2017 and 03/14/2014, as well as upper GI radiographs from June 13, 2008.. TECHNIQUE: Pre and post gadolinium enhanced images are acquired. The gadolinium enhancement dose is 16 mL of intravenous ProHance. Axial and coronal imaging planes are utilized. T1 and T2 weighted sequences include spin echo, gradient echo, diffusion-weighted scans, and dynamically acquired sequential postcontrast images. FINDINGS: Initial T2 weighted and diffusion-weighted scans show no focal liver lesion. On dynamically acquired sequential postcontrast images there is a slightly ill-defined rounded area of contrast enhancement which is isointense with blood pool enhancement in the left lobe of the liver corresponding to the location where ultrasound shows the hypoechoic lesion. This measures 1.8 cm in greatest dimension by MRI scanning. It is just above the falciform ligament. There is a or subtle area of contrast enhancement in this portion of the liver visible in retrospect on the December 13, 2017 study and this lesion is felt to be most compatible with an atypical hemangioma or, conceivably a hepatic adenoma. No other intrahepatic lesion is seen. There is a 2nd abnormality. An intramural small mass is seen in the gastric antrum region corresponding with the remotely positive upper GI findings from May of 2008. This enhancing intramural nodule is seen along the lesser curvature of the body of the stomach near the antrum anteriorly. It measures 1.4 cm in greatest diameter and is felt to be unchanged from the finding seen on upper GI study in 2008. It is most compatible with a gastric leiomyoma. No other mass is seen in the abdomen. The liver and spleen are otherwise unremarkable. No pancreatic abnormality is seen. Heterogeneous material fills the lumen of the gallbladder on T2 weighted scans consistent with extensive cholelithiasis as previously noted. No biliary ductal dilation is observed. No adrenal lesion is seen. There is no evidence of ascites. No renal abnormality is observed. IMPRESSION: 1. Subtle hypervascular nodule in the left lobe of the liver corresponding the recent sonography findings compatible with atypical hemangioma versus hepatic adenoma. Follow-up sonography suggested in 6-12 months to document stability in size. 2. Stable intramural nodule in the wall of the stomach compatible with gastric leiomyoma. 1.4 cm in diameter. 3. Cholelithiasis <Electronically signed by Deangelo Olson > 07/08/20 [id number]
== END ==
LOC: M PLARAD 12:49
PROVIDERS: ATTEND Internal Medicine Gastroenterology
DX: D37.2 Neoplasm of uncertain behavior of small intestine (principal); R93.2 Abnormal findings on diagnostic imaging of liver and biliary tract; Z90.49 Acquired absence of other specified parts of digestive tract

== ENCOUNTER → 2020-08-07 | Outpatient (CLI) | payer OTHER ==
--- NOTE | 2020-08-07 11:27 | REP ---
INDICATION: OTH DISEASES OF GALLBLADDER. COMPARISON: None TECHNIQUE/RADIOTRACER AND DOSE: FOLLOWING THE INTRAVENOUS ADMINISTRATION OF 6.6 MCI TECHNETIUM 99 M-MEBROFENIN, MULTIPLE IMAGES OF THE RIGHT UPPER QUADRANT ARE PERFORMED FOR 60 MINUTES. Delayed images are performed 3 hours post injection. FINDINGS: The gallbladder is not visualized during any portion of the exam.. THERE IS BILIARY TO BOWEL TRANSIT AT 20MINUTES POST INJECTION. IMPRESSION: Gallbladder does not fill up to 3 hours post injection, compatible with an obstructed cystic duct. <Electronically signed by Ascencion Nails > 08/07/20 [id number]
== END ==
LOC: M RAD 07:40
PROVIDERS: ATTEND Internal Medicine Gastroenterology
DX: K82.8 Other specified diseases of gallbladder (principal)
CPT/HCPCS: 78226; A9537

== ENCOUNTER → 2020-08-30 | Outpatient (CLI) | payer OTHER ==
[~2020-08-30] MED LIST changes: +DICY20TA11
== END ==
LOC: M LABSMTC 08:32
PROVIDERS: ATTEND Anesthesiology
DX: Z01.812 Encounter for preprocedural laboratory examination (principal); Z11.52 Encounter for screening for COVID-19

== ENCOUNTER 2020-09-04 07:03 | Day surgery (SDC) | payer OTHER ==
[~2020-09-04] VITALS: Ht 157.5 cm; Wt 83.8 kg
[~2020-09-04 07:03] MED LIST changes: +NS 1,000 ML IV ONE
[2020-09-04] MEDS ORDERED: propofoL 200 MG/20 ML VIAL As Ordered ONE (08:14)
[2020-09-04] MEDS ORDERED: LIDOCAINE 2% MDV 20ML VIAL As Ordered ONE (08:14)
--- NOTE | 2020-09-04 08:19 | ROOR ---
Patient Name: Jasmine Linda Procedure Date: 09/04/2020 7:55 AM Date of : 1980 Age: 40 Room: [facility] Gender: Female Note Status: Finalized Procedure: Colonoscopy Indications: Change in bowel habits, history of possible "convalescent colitis" Providers: Reid Rosado MD Referring MD: Elsy Simmons NP Requesting Provider: Medicines: Monitored Anesthesia Care Complications: No immediate complications. Procedure: Pre-Anesthesia Assessment: - The heart rate, respiratory rate, oxygen saturations, blood pressure, adequacy of pulmonary ventilation, and response to care were monitored throughout the procedure. The Colonoscope was introduced through the anus and advanced to 10 cm into the ileum. The colonoscopy was performed without difficulty. The patient tolerated the procedure well. The quality of the bowel preparation was good. Findings: The perianal and digital rectal examinations were normal. Mild sigmoid diverticulosis and small internal hemorrhoids. The exam was otherwise without abnormality on direct and retroflexion views. Biopsies for histology were taken with a cold forceps for evaluation of microscopic colitis. Impression: - Mild sigmoid colon and ascending colon diverticulosis and small internal hemorrhoids. - The examination was otherwise normal on direct and retroflexion views. - Biopsies were taken with a cold forceps for evaluation of microscopic colitis. Recommendation: - Telephone endoscopist for pathology results in 2 weeks. Procedure Code(s): --- Professional --- 92691, Colonoscopy, flexible; with biopsy, single or multiple Diagnosis Code(s): --- Professional --- R19.4, Change in bowel habit CPT copyright 2019 [employer]. All rights reserved. The codes documented in this report are preliminary and upon riveter helper review may be revised to meet current compliance requirements. Reid Rosado MD Reid Rosado MD 09/04/2020 8:18:49 AM Electronically signed by Reid Rosado MD Number of Addenda: 0 Note Initiated On: 09/04/2020 7:55 AM Estimated Blood Loss: Estimated blood loss: none. Estimated blood loss: none.
[2020-09-04 08:36] VITALS: BP 128/79
== END 2020-09-04 08:39 | disposition home or self-care (01) ==
LOC: M OPP 07:03
PROVIDERS: ATTEND Internal Medicine Gastroenterology
DX: R19.4 Change in bowel habit (principal); K57.30 Diverticulosis of large intestine without perforation or abscess without bleeding; K64.8 Other hemorrhoids; R10.9 Unspecified abdominal pain; E11.9 Type 2 diabetes mellitus without complications; I10 Essential (primary) hypertension; Z79.899 Other long term (current) drug therapy; Z88.0 Allergy status to penicillin; Z91.018 Allergy to other foods

== ENCOUNTER → 2020-09-07 | Outpatient (CLI) | payer OTHER ==
[~2020-09-07] MED LIST changes: -NS 1,000 ML IV ONE
== END ==
LOC: M LABSMTC 07:58
PROVIDERS: ATTEND Anesthesiology
DX: Z01.818 Encounter for other preprocedural examination (principal); Z20.822 Contact with and (suspected) exposure to COVID-19

== ENCOUNTER 2020-09-12 06:02 | Day surgery (SDC) | payer OTHER ==
[~2020-09-12] VITALS: Ht 157.5 cm; Wt 82.5 kg
[~2020-09-12 06:02] MED LIST changes: +CelecoXIB 400 MG CAP PO ONE; -DICY20TA11; +DICY20TA11 PO; +INDOCYANINE GREEN 25MG VIAL (IC-GREEN) IV ONE; +LIDOCAINE 1% MDV 20ML VIAL SQ PRN; +LR 1,000 ML IV ONE; +LevoFLOXacin IV 500 MG in IV 1 EA IV ONE
[2020-09-12] MEDS ORDERED: BUPIVACAINE HCL 0.25% 30ML VIAL As Ordered ONE (07:10)
[2020-09-12] MEDS ORDERED: LIDOCAINE 1% SDV 30ML VIAL As Ordered ONE (07:10)
[2020-09-12] MEDS ORDERED: dexameTHASONE 4 MG/ML 1ML VIAL (J1100 PER 1MG) As Ordered ONE (07:14)
[2020-09-12] MEDS ORDERED: MIDAZOLAM INJ 2MG/2ML VIAL (J2250 PER 1MG) As Ordered ONE (07:14)
[2020-09-12] MEDS ORDERED: ONDANSETRON 4MG/2ML VIAL As Ordered ONE (07:14)
[2020-09-12] MEDS ORDERED: propofoL 200 MG/20 ML VIAL As Ordered ONE (07:14)
[2020-09-12] MEDS ORDERED: LIDOCAINE 2% 100MG/5ML SDV (FOR ANES.) As Ordered ONE (07:14)
[2020-09-12] MEDS ORDERED: ACETAMINOPHEN 1000MG 100ML IV BTL (OFIRMEV) (J0131 PER 10MG) As Ordered ONE (07:14)
[2020-09-12] MEDS ORDERED: ROCURONIUM BROMIDE 50 MG/5 ML VIAL As Ordered ONE ×2 (07:14→08:35)
[2020-09-12] MEDS ORDERED: fentaNYL 100 MCG/2 ML INJECTION (J3010) As Ordered ONE (07:15)
[2020-09-12] MEDS ORDERED: LACRILUBE (AKWA TEARS) OPHTH OINT 3.5 GM As Ordered ONE (08:37)
[2020-09-12] MEDS ORDERED: KETOROLAC 60MG 2ML VIAL As Ordered ONE (08:39)
[2020-09-12] MEDS ORDERED: SUGAMMADEX SODIUM 500 MG/5 ML VIAL (BRIDION) As Ordered ONE (08:39)
[2020-09-12] MEDS: fentaNYL 100 MCG/2 ML INJECTION (J3010) IV PRN ×2 (09:25→09:40)
[2020-09-12] MEDS ORDERED: LR 1,000 ML IV SCH (09:35)
[2020-09-12] MEDS ORDERED: ONDANSETRON 4MG/2ML VIAL IV PRN ×2 (09:35→09:40)
[2020-09-12] MEDS ORDERED: NORCO, ANEXSIA 5/325MG TABLET (HYDROcodone/ACETAMINOPHEN) PO PRN (09:40)
--- NOTE | 2020-09-12 09:55 | ROOPDOC ---
[facility] Report Of Operation Report of Operation DATE OF PROCEDURE: 09/12/20 PREPROCEDURE DIAGNOSES: CHOLELITHIASIS, biliary colic. POSTPROCEDURE DIAGNOSES: Cholelithiasis, chronic cholecystitis. PROCEDURE: Robotic assisted Laparoscopic Cholecystectomy with ICG/Firefly for biliary tract identification SURGEON: Serafin Li MD REGIONAL RECRUITER: Shirlene Gomez NP Ms. Gomez is present throughout the whole case and helped with placement of ports, management of the instruments and robotic arms on the field while I was at the surgeon's console, helped with extraction of the gallbladder and closure of the skin incisions on the port sites. ANESTHESIA: General Endotracheal Anesthesia. ESTIMATED BLOOD LOSS: Approximately 10 mL. COMPLICATIONS: none. REMARKS: . Patient has been having epigastric and right upper quadrant pain and discomfort associated with food intake for the past 2 months secondary to stones in her gallbladder. HIDA scan was also ordered by her proofer prepress and this shows evidence for cystic duct obstruction consistent with cholecystitis. PROCEDURE NOTE: Liver appears healthy. Gallbladder is full of stones, does not light up on firefly. Cystic duct is small in size. There is early bifurcation of the cystic artery. Firefly shows good visualization of the cystic duct, common bile duct and common hepatic duct. DESCRIPTION OF PROCEDURE: . Patient was given a dose of Levaquin 500 mg IV preoperatively for prophylaxis, 2.5 mg of ICG was given IV in the preop area. She was brought to the operating room, laid supine on the table, compression boots placed for DVT prophylaxis. General endotracheal anesthesia started. Her abdomen then prepped and draped in usual sterile fashion. Surgical timeout was performed prior to [facility] procedure, right patient identification and other necessary information prior to starting surgery. Entry into the abdomen done through an incision slightly to the right of the umbilical cleft. A Veress needle was inserted with a controlled fashion. CO2 insufflation started to pressure 15 mmHg. Using the same incision an 8 mm robotic trochar was placed under direct vision laparoscope. The area underneath the insertion site was inspected and no injury found. She was then placed on a 12 reverse Trendelenburg, tilted slightly towards the left side. Under direct vision I placed three more 8 mm trochars along a row level to the camera port site. A transversus abdominis plane block was then performed bilaterally using the lidocaine/marcaine mixture under laparoscopic guidance. 20 mLs of the mixture placed on each side. The [place] robot tower was then maneuvered in place and the trochars docked to the robot. After positioning the instruments inside of the abdomen, and scrubbed in to control of the camera and robotic instruments at the surgeon's console while my elementary assistant principal remains on the field. Operative findings: Liver appears healthy in appearance, smooth appearing without any noticeable lesions on the surface. The gallbladder is contracted but filled with stones throughout. The gallbladder wall is mildly chronically thickened. On firefly, good visualization of the cystic duct take off from the gabllbladder, insertion to the cbd and course of the common hepatic duct. Gallbladder does not light up on firefly consistent with cholecystitis. No acute inflammation noted. The fundus of the gallbladder was grabbed and elevated superiorly to expose the hepatocystic triangle. The course of the cystic duct and location of the cbd confirmed visually and with firefly. I then proceeded with dissection of the hepatocystic triangle with the aid of the firefly and ICG to identify the course of the cystic duct. The peritoneum overlying the area is opened up and dissected free both anteriorly and posteriorly to help with retraction of the gallbladder. The hepatocystic triangle was approached and dissected using hook cautery and firely visualization of the cystic duct. There was good illumination of the course of the cystic duct. The cystic duct was identified coming off from the neck of the gallbladder. This was circumferentially dissected. The cystic artery was identified in its usual position medially behind an enlarged hepatocystic lymph node.. This was similarly circumferentially dissected off surrounding adipose tissue and this seems to bifurcate as it courses upward early with two branches at the medial/posterior side. We continued posterior dissection proximally at the neck of gallbladder to dissect the posterior wall of the gallbladder off the cystic plate until a critical view of safety was achieved whereby only the previously identified duct and artery coursing through the neck the gallbladder(photodocumentation done.) At this point the the cystic artery was most accessible and this was clipped 2 times and divided in between the hemlock clips. After again checking her anatomy and verifying with firely the course of thecystic duct and common bile duct, this was also clipped and divided with 2 clips remaining at the cystic duct stump. The rest of the gallbladder was then dissected free of the gallbladder bed using hook cautery. The gallbladder was then placed in an Endo Catch bag and retrieved outside through the rightmost port site with further enlargement of the port site to accomodate the stone filled gallbladder. . I closed the defect with 20V LOC in a mattress fashion. The clips and liver bed was inspected for bleeding and bile leakage and none found. The abdomen was deflated, The trochars undocked, the robot removed from the field. Rest of the skin incisions closed with 4-0 Monocryl in subcuticular fashion. Dermabond placed to cover the incisions.. Patient was awakened, extubated and brought to recovery room stable. SERAFIN LI MD September 12, 2020 09:55
[2020-09-12] MEDS ORDERED: HYDROmorphone HCL 2 MG/ML 1ML VIAL (J1170) As Ordered ONE (09:58)
[2020-09-12] MEDS: HYDROMORPHONE HCL 0.5 MG/ 0.5 ML SYRINGE (J1170 PER 1) IV PRN ×2 (10:00→10:24)
[2020-09-12] MEDS: oxyCODONE 5MG TAB PO PRN ×2 (11:04→12:42)
[2020-09-12 12:45] VITALS: BP 135/63
[2020-09-12] MEDS ORDERED: KETOROLAC 30 MG/ML 1ML VIAL IV PRN (15:00)
[2020-09-12] MEDS ORDERED: HYDR-3713 PO (23:02)
[2020-09-13] MEDS ORDERED: OMEP20TA2 PO (03:31)
[2020-09-13] MEDS ORDERED: ZOFR4TAB16 PO (16:58)
== END 2020-09-12 13:05 | disposition home or self-care (01) ==
LOC: M SDC 06:02
PROVIDERS: ATTEND Surgery
DX: K80.10 Calculus of gallbladder with chronic cholecystitis without obstruction (principal); I10 Essential (primary) hypertension; K21.9 Gastro-esophageal reflux disease without esophagitis; K20.0 Eosinophilic esophagitis; R19.7 Diarrhea, unspecified; R51.9 Headache, unspecified; E11.9 Type 2 diabetes mellitus without complications; Z88.0 Allergy status to penicillin; Z91.018 Allergy to other foods; J30.81 Allergic rhinitis due to animal (cat) (dog) hair and dander; Z79.899 Other long term (current) drug therapy
CPT/HCPCS: 47563; 88304; J0131; J1100; J1885; J1956; J2250; J2405; J3010; S2900

== ENCOUNTER 2020-09-12 22:53 | Observation (INO) | payer OTHER ==
[~2020-09-12] VITALS: Ht 157.5 cm; Wt 83.1 kg
[~2020-09-12 22:53] MED LIST changes: -CelecoXIB 400 MG CAP PO ONE; -INDOCYANINE GREEN 25MG VIAL (IC-GREEN) IV ONE; -LIDOCAINE 1% MDV 20ML VIAL SQ PRN; -LR 1,000 ML IV ONE; -LevoFLOXacin IV 500 MG in IV 1 EA IV ONE
[2020-09-12] MEDS ORDERED: HYDR-3713 PO (23:02)
[2020-09-12] MEDS ORDERED: NS 1,000 ML IV SCH (23:40)
[2020-09-13 01:20] LABS: BASO % 0.3 % (0.0-1.0); HEMATOCRIT 44.9 % (36.0-47.0); HEMOGLOBIN 15.2 g/dl (12.0-15.5); LYMPH # 2.6 10^3/uL (1.5-5.0); MEAN CORPUSCULAR HEMOGLOBIN 30.4 pg (27.0-33.0); MEAN CORPUSCULAR HGB CONC 33.9 g/dl (32.0-36.5); MEAN CORPUSCULAR VOLUME 89.8 fl (80.0-96.0); MONO # 0.8 10^3/uL (0.0-0.8); MONO % 6.3 % (2.0-8.0); NEUTROPHILS # 9.6 10^3/uL (1.5-8.5); PLATELET COUNT, AUTOMATED 257 10^3/uL (150-450); WHITE BLOOD COUNT 13.1 10^3/uL (4.0-10.0)
[2020-09-13 01:35] LABS: ALBUMIN 4.2 GM/DL (3.2-5.2); ALT/SGPT 48 U/L (12-78); BILIRUBIN,DIRECT 0.2 MG/DL (0.0-0.2); BILIRUBIN,TOTAL 0.9 MG/DL (0.2-1.0); BLOOD UREA NITROGEN 13 MG/DL (7-18); CARBON DIOXIDE LEVEL 29 MEQ/L (21-32); CHLORIDE LEVEL 104 MEQ/L (98-107); CREATININE FOR GFR 0.82 MG/DL (0.55-1.30); GLOMERULAR FILTRATION RATE > 60.0 (>60); GLUCOSE, FASTING 118 MG/DL (70-100); LIPASE 59 U/L (73-393); POTASSIUM SERUM 4.1 MEQ/L (3.5-5.1); SODIUM LEVEL 138 MEQ/L (136-145); TOTAL PROTEIN 7.7 GM/DL (6.4-8.2)
[2020-09-13 01:45] LABS: HCG, SERUM QUALITATIVE NEGATIVE (NEGATIVE)
[2020-09-13] MEDS ORDERED: MORPHINE 4 MG/ML 1ML VIAL/SYRINGE (J2270) IV ONE (01:45)
[2020-09-13] MEDS ORDERED: ONDANSETRON 4MG/2ML VIAL IV ONE ×2 (02:10→02:15)
[2020-09-13] MEDS ORDERED: LevoFLOXacin IV 750 MG in IV 1 EA IV ONE (02:15)
[2020-09-13] MEDS ORDERED: LR 1,000 ML IV ONE (02:15)
[2020-09-13] MEDS ORDERED: ISOVUE-370 76% 100ML VIAL As Ordered ONE (02:28)
[2020-09-13] MEDS ORDERED: PERCOCET 5MG/325MG TAB PO PRN (03:20)
[2020-09-13] MEDS ORDERED: PROMETHAZINE INJ 25 MG/ML VIAL (J2550) IV PRN (03:20)
[2020-09-13] MEDS ORDERED: ACETAMINOPHEN TAB 650MG DOSE (2X325MG) PO PRN (03:20)
[2020-09-13] MEDS ORDERED: OMEP20TA2 PO (03:31)
[2020-09-13 04:42] LABS: RSV AMPLIFICATION NEGATIVE (NEGATIVE)
[2020-09-13] MEDS: GASTROGRAFIN SOLUTION 30ML PO SCH ×2 (05:11→05:20)
[2020-09-13] MEDS: KETOROLAC 30 MG/ML 1ML VIAL IV SCH ×3 (05:21→15:33)
[2020-09-13] MEDS: LR 1,000 ML IV SCH ×2 (05:21→11:22)
--- NOTE | 2020-09-13 05:35 | REPVR ---
PROCEDURE INFORMATION: Exam: XR Abdomen Exam date and time: 09/13/2020 2:27 AM Age: 40 years old Clinical indication: Other: Pain/abdominal distention TECHNIQUE: Imaging protocol: XR of the abdomen. Views: 2 Views. Upright and supine views. COMPARISON: MRI ABD W/O FOL WITH 07/08/2020 1:40 PM FINDINGS: Gastrointestinal tract: Normal. No bowel dilation. Intraperitoneal space: There is linear lucency in the right subdiaphragmatic space.. IMPRESSION: 1. No radiographic evidence of bowel obstruction. 2. Questionable small pneumoperitoneum with air under the right hemidiaphragm. Correlation with clinical history for recent surgery. CT of the abdomen and pelvis is suggested for better evaluation, if clinically indicated. Electronically signed by: Chester Luna On 09/13/2020 05:34:49 AM
[2020-09-13] MEDS: ONDANSETRON 4MG/2ML VIAL IV SCH ×3 (06:09→15:33)
[2020-09-13 06:15] VITALS: BP 172/90
[2020-09-13] MEDS ORDERED: PANTOPRAZOLE 40MG VIAL (C9113 PER 1) IV SCH (09:00)
[2020-09-13 09:16] LABS: BASO # 0.1 10^3/uL (0.0-0.2); BASO % 0.5 % (0.0-1.0); EOS # 0.2 10^3/uL (0.0-0.5); EOS % 1.1 % (0.0-3.0); HEMATOCRIT 39.6 % (36.0-47.0); HEMOGLOBIN 13.5 g/dl (12.0-15.5); LYMPH # 3.9 10^3/uL (1.5-5.0); LYMPH % 27.8 % (24.0-44.0); MEAN CORPUSCULAR HEMOGLOBIN 30.4 pg (27.0-33.0); MEAN CORPUSCULAR HGB CONC 34.1 g/dl (32.0-36.5); MEAN CORPUSCULAR VOLUME 89.2 fl (80.0-96.0); MONO # 1.1 10^3/uL (0.0-0.8); MONO % 7.5 % (2.0-8.0); NEUTROPHILS # 8.8 10^3/uL (1.5-8.5); NEUTROPHILS % 62.7 % (36.0-66.0); PLATELET COUNT, AUTOMATED 223 10^3/uL (150-450); RED BLOOD COUNT 4.44 10^6/uL (4.00-5.40); WHITE BLOOD COUNT 14.1 10^3/uL (4.0-10.0)
[2020-09-13 09:41] LABS: ALBUMIN 3.4 GM/DL (3.2-5.2); ALT/SGPT 40 U/L (12-78); BILIRUBIN,TOTAL 0.9 MG/DL (0.2-1.0); BLOOD UREA NITROGEN 12 MG/DL (7-18); CALCIUM LEVEL 8.5 MG/DL (8.5-10.1); CARBON DIOXIDE LEVEL 25 MEQ/L (21-32); CHLORIDE LEVEL 109 MEQ/L (98-107); CREATININE FOR GFR 0.82 MG/DL (0.55-1.30); GLOMERULAR FILTRATION RATE > 60.0 (>60); GLUCOSE, FASTING 112 MG/DL (70-100); POTASSIUM SERUM 3.9 MEQ/L (3.5-5.1); SODIUM LEVEL 139 MEQ/L (136-145); TOTAL PROTEIN 6.7 GM/DL (6.4-8.2)
--- NOTE | 2020-09-13 13:20 | HPEPDOC ---
General Surgery H&P Date of Admission September 13, 2020 Attending Physician: SERAFIN IGNACIO MD History and Physical CHIEF COMPLAINT: nausea and abdominal pain HISTORY OF PRESENT ILLNESS: Patient returned to the emergency room postoperatively. She had robotic-assisted laparoscopic cholecystectomy for chronic cholecystitis, right upper quadrant pain none earlier in the day. The procedure went uneventfully. Postoperatively she has significant discomfort over the right most port site which is the extraction sites. She had a gallbladder stonesenlarge that port site incision. She also tells me that towards the end of her recovery room states she started feeling nauseated. When she got home she this nausea worsened and she had several episodes of vomiting, couldn't keep anything down including liquids and her pain medication. The retching and vomiting exacerbated her port site incisional pain and she was not able to take any further pain medications. She called the answering service and instructed her to go to the emergency room, at least be hydrated and be evaluated. She was noted to be in pain, nauseated though she did respond to IV Zofran. She got a liter bolus of IV crystalloids. This made her feel better. She is subsequently admitted for continued hydration, continue treatment of her postoperative nausea and her abdominal discomfort. ALLERGIES: Please see below. HOME MEDICATIONS: Please see below. PAST MEDICAL HISTORY: 1. Diabetes. 2. Hypertension 3. History of gastric stromal tumor PAST SURGICAL HISTORY: 1. Hysterectomy. 2. EGD and colonoscopy 3. Tubal ligation 4. Robotic-assisted laparoscopic cholecystectomy on 09/12/2020. PERSONAL/SOCIAL HISTORY: Denies smoking, rare alcohol use, denies recreational drug use. REVIEW OF SYSTEMS: Patient has had surgery today. He denies any chest pains, shortness of breath. Reports nausea and because of nausea and retching as well as the vomiting was exacerbating the discomfort from her abdominal incisions. Denies fevers or chills. Has not had any bowel movement since the surgery. Reports passing flatus. Reports she was able to urinate without any difficulty or burning PHYSICAL EXAMINATION: VITAL SIGNS: Please see below. GENERAL APPEARANCE: Patient looks mildly uncomfortable mostly due to the nausea. Awake, alert, oriented. HEENT: Normocephalic, atraumatic. [place] palpebral conjunctivae. Anicteric sclerae. Lips moist. CHEST: No chest wall abnormalities. Normal respiratory motion/effort. NECK: Supple. No thyromegaly. No lymphadenopathies. LUNGS: Lung sounds are clear to auscultation bilaterally. No wheezing appreciated. HEART: No chest wall abnormalities. Heart rate and rhythm are regular with no murmurs. ABDOMEN: Abdomen is mildly obese slightly rounded soft, minimally distended. She has 4 ports site incisions the right lateral most port site is larger than the rest mild ecchymosis surrounding this area and this is the most tender portion. She is also mildly tender over the right upper quadrant area mild guarding more on the port sites. SKIN: Warm and dry, no jaundice. EXTREMITIES: Extremities have no deformities. No edema identified. NEUROLOGICAL: . ANCILLARIES: . LABORATORY DATA: Please see below. MICROBIOLOGY: Please see below. IMAGING: X-ray shows some small amount of residual air underneath the diaphragm. No [place] bowel distention noted IMPRESSION AND PLAN: Postop day 0 robotic-assisted laparoscopic cholecystectomy for chronic cholecystitis Postoperative nausea, vomiting, abdominal pain Patient was admitted under my service for observation, IV fluid hydration as well as treatment of her nausea with IV Zofran. I'm limiting the narcotics as this certainly will exacerbated nauseous on treating her mostly with IV Toradol with small amounts of Percocet for pain control. Otherwise clinically looks well. Her nausea is much improved and now that she's well-hydrated she is feeling better. I started her on clear liquids and so far she has tolerated this so I will advance her to a regular diet. She does have some mild reactive leukocytosis that is persistent from last night 14.5 she has normal LFTs. She is tender most over the right most port site which is extraction site but she is also sensitive/tender over all the other port sites and also the right upper quadrant area. She is quite tympanitic so instructed her to ambulate the hallways. Depending on how she tolerates food, however nausea goes in our pain is may need to stay today and hopefully be discharged home tomorrow but if all the other symptoms improve throughout the course of today we'll consider sending her home if she tolerates food.. Vital Signs Vital Signs Date Time Temp Pulse Resp B/P (MAP) Pulse Ox O2 Delivery O2 Flow Rate FiO2 09/13/20 10:41 18 09/13/20 06:15 98.0 54 172/90 (117) 97 Room Air I&Os I&O- Last 24 Hours up to 6 AM 09/13/20 05:59 Intake Total 600 ml Balance 600 ml Laboratory Data Labs 24H Laboratory Tests 2 09/13/20 00:49: Immature Granulocyte % (Auto) 0.4, Neutrophils (%) (Auto) 73.0H, Lymphocytes (%) (Auto) 20.0L, Monocytes (%) (Auto) 6.3, Eosinophils (%) (Auto) 0.0, Basophils (%) (Auto) 0.3, Neutrophils # (Auto) 9.6H, Lymphocytes # (Auto) 2.6, Monocytes # (Auto) 0.8, Eosinophils # (Auto) 0.0, Basophils # (Auto) 0.0, Nucleated Red Blood Cells % (auto) 0.0, Anion Gap 5L, Glomerular Filtration Rate > 60.0, Calcium Level 9.0, Total Bilirubin 0.9, Direct Bilirubin 0.2, Aspartate Amino Transf (AST/SGOT) 19, Alanine Aminotransferase (ALT/SGPT) 48, Alkaline Phosphatase 51, Total Protein 7.7, Albumin 4.2, Albumin/Globulin Ratio 1.2, Lipase 59L, Human Chorionic Gonadotropin, Qual NEGATIVE 09/13/20 03:49: Coronavirus (COVID-19)(PCR) NEGATIVE, Influenza Type A (RT-PCR) NEGATIVE, Influenza Type B (RT-PCR) NEGATIVE, Respiratory Syncytial Virus (PCR) NEGATIVE 09/13/20 04:00: Lactic Acid Level 1.4 09/13/20 09:02: Immature Granulocyte % (Auto) 0.4, Neutrophils (%) (Auto) 62.7, Lymphocytes (%) (Auto) 27.8, Monocytes (%) (Auto) 7.5, Eosinophils (%) (Auto) 1.1, Basophils (%) (Auto) 0.5, Neutrophils # (Auto) 8.8H, Lymphocytes # (Auto) 3.9, Monocytes # (Au to) 1.1H, Eosinophils # (Auto) 0.2, Basophils # (Auto) 0.1, Nucleated Red Blood Cells % (auto) 0.0, Anion Gap 5L, Glomerular Filtration Rate > 60.0, Calcium Level 8.5, Total Bilirubin 0.9, Aspartate Amino Transf (AST/SGOT) 17, Alanine Aminotransferase (ALT/SGPT) 40, Alkaline Phosphatase 43L, Total Protein 6.7, Albumin 3.4, Albumin/Globulin Ratio 1.0L CBC/BMP Laboratory Tests 09/13/20 00:49 09/13/20 09:02 Home Medications Scheduled Lisinopril (Lisinopril) 10 Mg Tablet, 10 MG PO QHS, (Reported) Omeprazole (Omeprazole) 20 Mg Tablet.dr, 20 MG PO QHS, (Reported) Scheduled PRN Dicyclomine HCl (Dicyclomine HCl) 20 Mg Tablet, 20 MG PO QID PRN for DIARRHEA, (Reported) Hydrocodone/Acetaminophen (Hydrocodone-Acetamin 5-325 mg) 1 Each Tablet, 1 TAB PO Q4-6HP PRN for PAIN, (Reported) Ibuprofen (Ibu-200) 200 Mg Tablet, 400 MG PO Q6H PRN for PAIN, (Reported) Ondansetron HCl (Zofran) 4 Mg Tablet, 1 TAB PO Q6HP PRN for NAUSEA Allergies Coded Allergies: Animal Dander (Unverified Allergy, Intermediate, 11/15/19) Dust (Verified Allergy, Unknown, 11/15/19) garlic (Verified Allergy, Unknown, 11/15/19) Penicillins (Verified Adverse Reaction, Mild, vomiting severe, 11/15/19) A-FIB/CHADSVASC A-FIB History Current/History of A-Fib/PAF?: No Current PO Anticoag Therapy: SERAFIN Bingham MD September 13, 2020 13:20
[2020-09-13 14:00] VITALS: BP 141/76
[2020-09-13] MEDS ORDERED: ZOFR4TAB16 PO (16:58)
== END 2020-09-13 17:20 | disposition home or self-care (01) ==
LOC: M ED 22:53 → M ED INP 22:54 → ENRESERV 09-13 05:03 → M MS5PR 09-13 06:00
PROVIDERS: ADMIT Surgery; ATTEND Surgery
DX: G89.18 Other acute postprocedural pain (principal); Z87.19 Personal history of other diseases of the digestive system; R11.2 Nausea with vomiting, unspecified; R10.9 Unspecified abdominal pain; I10 Essential (primary) hypertension; Z79.899 Other long term (current) drug therapy; Z88.0 Allergy status to penicillin; Z91.018 Allergy to other foods; J30.81 Allergic rhinitis due to animal (cat) (dog) hair and dander
CPT/HCPCS: 36415; 74019; 80053; 83605; 83690; 84703; 85025; 87631; 93041; 96361; 96374; 96375; 96376; 99285; C9113; J1885; J2270; J2405

== ENCOUNTER → 2020-12-02 | Outpatient (CLI) | payer OTHER ==
[~2020-12-02] MED LIST changes: -DOXY100C37; -DOXY100C37 PO; +DOXY1CAP62; +DOXY1CAP62 PO; +HYDR-3713 PO; +OMEP20TA2 PO; +ZOFR4TAB16 PO
[2020-12-02 09:31] LABS: ALBUMIN 3.9 GM/DL (3.2-5.2); ALT/SGPT 31 U/L (12-78); BILIRUBIN,TOTAL 0.8 MG/DL (0.2-1.0); BLOOD UREA NITROGEN 11 MG/DL (7-18); CALCIUM LEVEL 8.7 MG/DL (8.5-10.1); CARBON DIOXIDE LEVEL 25 MEQ/L (21-32); CHLORIDE LEVEL 111 MEQ/L (98-107); CHOLESTEROL LEVEL 183 MG/DL (<200); CHOLESTEROL RISK RATIO 4.255 (<5); CREATININE FOR GFR 0.67 MG/DL (0.55-1.30); GLOMERULAR FILTRATION RATE > 60.0 (>60); GLUCOSE, FASTING 109 MG/DL (70-100); HDL CHOLESTEROL 43 MG/DL (>40); LDL CHOLESTEROL 119 MG/DL (<100); NON-HDL-C 140 MG/DL; POTASSIUM SERUM 4.3 MEQ/L (3.5-5.1); SODIUM LEVEL 141 MEQ/L (136-145); TOTAL PROTEIN 7.1 GM/DL (6.4-8.2); TRIGLYCERIDES LEVEL 104 MG/DL (<150)
[2020-12-02 09:36] LABS: MALB URINE SIEMENS 7.1 MG/L; MAU/CREAT RATIO 5.6 MCG/MG (0.0-30.0)
[2020-12-02 09:36] LABS: TOTAL 25(OH) VITAMIN D 37.4 NG/ML (30.0-100.0)
[2020-12-02 09:38] LABS: HEMOGLOBIN A1c 5.7 %
== END ==
LOC: M LAB 08:29
PROVIDERS: ATTEND Nurse Practitioner Family
DX: I10 Essential (primary) hypertension (principal); R73.03 Prediabetes; E55.9 Vitamin D deficiency, unspecified

== ENCOUNTER → 2020-12-03 | Outpatient (CLI) | payer OTHER ==
--- NOTE | 2020-12-03 08:46 | REP ---
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 COMPARISON: 07/01/2020 FINDINGS: The gallbladder has been surgically removed. The bile ducts are not dilated. The liver shows normal size. A 2.2 cm hypoechoic solid nodule in the left lobe is unchanged when compared with the previous study done 07/01/2020. this does not have an appearance consistent with hemangioma and could represent adenoma or other solid liver lesion. The liver is otherwise unremarkable. The pancreas shows normal size and echo pattern. The right kidney measures 12 cm in length shows normal echo pattern. No hydronephrosis, mass, cyst or calculus. IMPRESSION: 2.2 cm hypoechoic solid nodule left lobe of the liver unchanged when compared with the previous study. <Electronically signed by Srini Kramer > 12/03/20 0415
== END ==
LOC: M RAD 08:06
PROVIDERS: ATTEND Internal Medicine Gastroenterology
DX: D37.6 Neoplasm of uncertain behavior of liver, gallbladder and bile ducts (principal)

== ENCOUNTER → 2021-04-26 | Outpatient (REF) | payer OTHER ==
[~2021-04-26] MED LIST changes: +DOXY-443; +DOXY-443 PO; -DOXY1CAP62; -DOXY1CAP62 PO; -IBUP200T45 PO; +IBUP200T46 PO
== END ==
LOC: M LAB REF 15:59
PROVIDERS: ATTEND Physician Assistant
DX: J02.9 Acute pharyngitis, unspecified (principal)

== ENCOUNTER → 2021-05-11 | Outpatient (CLI) | payer OTHER ==
[~2021-05-11] MED LIST changes: -DICY20TA11 PO; +DICY20TA20 PO
== END ==
LOC: M LABSMTC 10:53
PROVIDERS: ATTEND Anesthesiology
DX: Z01.812 Encounter for preprocedural laboratory examination (principal); Z11.52 Encounter for screening for COVID-19

== ENCOUNTER → 2021-05-20 | Outpatient (CLI) | payer OTHER | LOC: M RAD 10:14 | PROVIDERS: ATTEND Obstetrics & Gynecology | DX: N83.201 Unspecified ovarian cyst, right side (principal); R10.31 Right lower quadrant pain ==

== ENCOUNTER → 2021-09-02 | Outpatient (CLI) | payer OTHER ==
[2021-09-02 09:40] LABS: ALBUMIN 3.8 GM/DL (3.2-5.2); ALT/SGPT 47 U/L (12-78); BILIRUBIN,TOTAL 1.3 MG/DL (0.2-1.0); BLOOD UREA NITROGEN 11 MG/DL (7-18); CALCIUM LEVEL 9.7 MG/DL (8.5-10.1); CARBON DIOXIDE LEVEL 26 MEQ/L (21-32); CHLORIDE LEVEL 107 MEQ/L (98-107); CHOLESTEROL LEVEL 205 MG/DL (<200); CREATININE FOR GFR 0.77 MG/DL (0.55-1.30); FREE T4 1.15 NG/DL (0.76-1.46); GLOMERULAR FILTRATION RATE > 60.0 (>58); GLUCOSE, FASTING 117 MG/DL (70-100); HDL CHOLESTEROL 37 MG/DL (>40); LDL CHOLESTEROL 130 MG/DL (<100); NON-HDL-C 168 MG/DL; POTASSIUM SERUM 4.3 MEQ/L (3.5-5.1); SODIUM LEVEL 140 MEQ/L (136-145); THYROID STIMULATING HORMONE 0.859 uIU/ML (0.358-3.740); TOTAL PROTEIN 7.1 GM/DL (6.4-8.2); TRIGLYCERIDES LEVEL 192 MG/DL (<150)
[2021-09-02 09:42] LABS: TOTAL 25(OH) VITAMIN D 25.2 NG/ML (30.0-100.0)
[2021-09-02 09:43] LABS: MALB URINE SIEMENS 13.7 MG/L; MAU/CREAT RATIO 8.7 MCG/MG (0.0-30.0)
== END ==
LOC: M LAB 08:15
PROVIDERS: ATTEND Nurse Practitioner Family
DX: Z13.220 Encounter for screening for lipoid disorders (principal)

== ENCOUNTER → 2021-12-16 | Outpatient (CLI) | payer OTHER | LOC: M RAD 07:47 | PROVIDERS: ATTEND Internal Medicine Gastroenterology | DX: D37.6 Neoplasm of uncertain behavior of liver, gallbladder and bile ducts (principal); D18.03 Hemangioma of intra-abdominal structures ==

== ENCOUNTER → 2022-02-28 | Outpatient (CLI) | payer OTHER | LOC: M LABSMTC 09:54 | PROVIDERS: ATTEND Anesthesiology | DX: Z01.812 Encounter for preprocedural laboratory examination (principal); Z11.52 Encounter for screening for COVID-19 ==

== ENCOUNTER 2022-03-05 12:31 | Day surgery (SDC) | payer OTHER ==
[~2022-03-05] VITALS: Ht 157.5 cm; Wt 78.8 kg
[~2022-03-05 12:31] MED LIST changes: +NS 1,000 ML IV ONE; +propofoL 200 MG/20 ML VIAL As Ordered ONE
[2022-03-05] MEDS ORDERED: fentaNYL 100 MCG/2 ML INJECTION As Ordered ONE (14:51)
[2022-03-05 15:22] VITALS: BP 110/65
== END 2022-03-05 15:26 | disposition home or self-care (01) ==
LOC: M OPP 12:31
PROVIDERS: ATTEND Internal Medicine Gastroenterology
DX: D13.1 Benign neoplasm of stomach (principal); K20.0 Eosinophilic esophagitis; Z79.1 Long term (current) use of non-steroidal anti-inflammatories (NSAID); Z79.899 Other long term (current) drug therapy; Z88.0 Allergy status to penicillin; Z91.018 Allergy to other foods; I10 Essential (primary) hypertension; Z80.0 Family history of malignant neoplasm of digestive organs; Z80.1 Family history of malignant neoplasm of trachea, bronchus and lung
CPT/HCPCS: 43239; 88305; J3010

== ENCOUNTER → 2022-06-11 | Outpatient (CLI) | payer OTHER ==
[~2022-06-11] MED LIST changes: -NS 1,000 ML IV ONE; -propofoL 200 MG/20 ML VIAL As Ordered ONE
[2022-06-11 09:46] LABS: BASO # 0.1 10^3/uL (0.0-0.2); BASO % 0.7 % (0.0-1.0); EOS # 0.1 10^3/uL (0.0-0.5); EOS % 1.6 % (0.0-3.0); HEMATOCRIT 45.4 % (36.0-47.0); HEMOGLOBIN 15.1 g/dl (12.0-15.5); LYMPH # 4.2 10^3/uL (1.5-5.0); LYMPH % 49.6 % (24.0-44.0); MEAN CORPUSCULAR HEMOGLOBIN 30.6 pg (27.0-33.0); MEAN CORPUSCULAR HGB CONC 33.3 g/dl (32.0-36.5); MEAN CORPUSCULAR VOLUME 91.9 fl (80.0-96.0); MONO # 0.6 10^3/uL (0.0-0.8); MONO % 6.8 % (2.0-8.0); NEUTROPHILS # 3.4 10^3/uL (1.5-8.5); NEUTROPHILS % 41.1 % (36.0-66.0); PLATELET COUNT, AUTOMATED 240 10^3/uL (150-450); RED BLOOD COUNT 4.94 10^6/uL (4.00-5.40); WHITE BLOOD COUNT 8.4 10^3/uL (4.0-10.0)
[2022-06-11 10:01] LABS: HEMOGLOBIN A1c 5.6 % (4.0-6.0)
[2022-06-11 10:17] LABS: ALBUMIN 4.1 G/DL (3.2-5.2); ALKALINE PHOSPHATASE 50 U/L (46-116); ALT/SGPT 17 U/L (7.0-40); AST/SGOT 11 U/L (<34); BILIRUBIN,TOTAL 1.1 MG/DL (0.3-1.2); BLOOD UREA NITROGEN 10 MG/DL (9-23); CALCIUM LEVEL 9.4 MG/DL (8.5-10.1); CARBON DIOXIDE LEVEL 28 MMOL/L (20-31); CHLORIDE LEVEL 106 MMOL/L (98-107); CHOLESTEROL LEVEL 189 MG/DL (<200); CHOLESTEROL RISK RATIO 4.22 (<5); CREATININE FOR GFR 0.75 MG/DL (0.55-1.30); GLOMERULAR FILTRATION RATE > 60.0 (>58); GLUCOSE, FASTING 105 MG/DL (60-100); HDL CHOLESTEROL 44.7 MG/DL (>40); LDL CHOLESTEROL 120.7 MG/DL (<100); NON-HDL-C 144 MG/DL; POTASSIUM SERUM 4.4 MMOL/L (3.5-5.1); SODIUM LEVEL 140 MMOL/L (136-145); TOTAL PROTEIN 7.2 G/DL (5.7-8.2); TRIGLYCERIDES LEVEL 118 MG/DL (<150)
[2022-06-11 10:18] LABS: TOTAL 25(OH) VITAMIN D 27.1 NG/ML (20.0-100.0)
== END ==
LOC: M WUC 08:22
PROVIDERS: ATTEND Nurse Practitioner Family
DX: R73.03 Prediabetes (principal); I10 Essential (primary) hypertension; E55.9 Vitamin D deficiency, unspecified; E78.5 Hyperlipidemia, unspecified; J30.9 Allergic rhinitis, unspecified

== ENCOUNTER → 2022-06-16 | Outpatient (CLI) | payer OTHER | LOC: M WHC 13:04 | PROVIDERS: ATTEND Nurse Practitioner Family | DX: Z12.31 Encounter for screening mammogram for malignant neoplasm of breast (principal); R92.8 Other abnormal and inconclusive findings on diagnostic imaging of breast ==

== ENCOUNTER → 2022-07-20 | Outpatient (CLI) | payer OTHER | LOC: M WHC 07:10 | PROVIDERS: ATTEND Physician Assistant | DX: N60.12 Diffuse cystic mastopathy of left breast (principal) ==

== ENCOUNTER → 2022-11-09 | Outpatient (CLI) | payer OTHER | LOC: M RAD 08:56 | PROVIDERS: ATTEND Internal Medicine Gastroenterology | DX: D37.6 Neoplasm of uncertain behavior of liver, gallbladder and bile ducts (principal) ==

== ENCOUNTER → 2023-04-07 | Outpatient (CLI) | payer OTHER ==
[2023-04-07 10:24] LABS: BASO # 0.1 10^3/uL (0.0-0.2); BASO % 0.6 % (0.0-1.0); EOS # 0.3 10^3/uL (0.0-0.5); EOS % 3.5 % (0.0-3.0); HEMATOCRIT 44.5 % (36.0-47.0); HEMOGLOBIN 15.1 g/dl (12.0-15.5); LYMPH # 4.6 10^3/uL (1.5-5.0); LYMPH % 51.6 % (24.0-44.0); MEAN CORPUSCULAR HEMOGLOBIN 31.1 pg (27.0-33.0); MEAN CORPUSCULAR HGB CONC 33.9 g/dl (32.0-36.5); MEAN CORPUSCULAR VOLUME 91.8 fl (80.0-96.0); MONO # 0.5 10^3/uL (0.0-0.8); NEUTROPHILS # 3.4 10^3/uL (1.5-8.5); NEUTROPHILS % 38.1 % (36.0-66.0); PLATELET COUNT, AUTOMATED 237 10^3/uL (150-450); RED BLOOD COUNT 4.85 10^6/uL (4.00-5.40); WHITE BLOOD COUNT 8.9 10^3/uL (4.0-10.0)
[2023-04-07 10:28] LABS: TOTAL 25(OH) VITAMIN D 38.4 NG/ML (20.0-100.0)
[2023-04-07 10:31] LABS: ALKALINE PHOSPHATASE 46 U/L (46-116); ALT/SGPT 21 U/L (7.0-40); AST/SGOT 11 U/L (<34); BILIRUBIN,TOTAL 0.9 MG/DL (0.3-1.2); BLOOD UREA NITROGEN 11 MG/DL (9-23); CALCIUM LEVEL 9.2 MG/DL (8.5-10.1); CARBON DIOXIDE LEVEL 28 MMOL/L (20-31); CHLORIDE LEVEL 107 MMOL/L (98-107); CHOLESTEROL LEVEL 184 MG/DL (<200); CHOLESTEROL RISK RATIO 4.53 (<5); CREATININE FOR GFR 0.71 MG/DL (0.55-1.30); GLOMERULAR FILTRATION RATE > 60.0 (>58); GLUCOSE, FASTING 107 MG/DL (60-100); HDL CHOLESTEROL 40.6 MG/DL (>40); LDL CHOLESTEROL 125.2 MG/DL (<100); NON-HDL-C 143.4 MG/DL; POTASSIUM SERUM 4.6 MMOL/L (3.5-5.1); SODIUM LEVEL 142 MMOL/L (136-145); TOTAL PROTEIN 6.8 G/DL (5.7-8.2); TRIGLYCERIDES LEVEL 91 MG/DL (<150)
[2023-04-07 10:40] LABS: HEMOGLOBIN A1c 5.4 % (4.0-6.0)
== END ==
LOC: M PLALAB 07:43
PROVIDERS: ATTEND Nurse Practitioner Family
DX: I10 Essential (primary) hypertension (principal); R73.03 Prediabetes; E55.9 Vitamin D deficiency, unspecified; E78.5 Hyperlipidemia, unspecified

== ENCOUNTER → 2023-05-17 | Outpatient (CLI) | payer OTHER ==
[2023-05-17 14:01] LABS: BASO # 0.1 10^3/uL (0.0-0.2); BASO % 0.6 % (0.0-1.0); EOS # 0.2 10^3/uL (0.0-0.5); EOS % 2.6 % (0.0-3.0); HEMATOCRIT 45.1 % (36.0-47.0); LYMPH # 4.4 10^3/uL (1.5-5.0); LYMPH % 54.6 % (24.0-44.0); MEAN CORPUSCULAR HEMOGLOBIN 30.6 pg (27.0-33.0); MEAN CORPUSCULAR HGB CONC 33.3 g/dl (32.0-36.5); MONO # 0.5 10^3/uL (0.0-0.8); MONO % 6.6 % (2.0-8.0); NEUTROPHILS # 2.9 10^3/uL (1.5-8.5); NEUTROPHILS % 35.4 % (36.0-66.0); PLATELET COUNT, AUTOMATED 240 10^3/uL (150-450); WHITE BLOOD COUNT 8.1 10^3/uL (4.0-10.0)
== END ==
LOC: M PLALAB 10:56
PROVIDERS: ATTEND Nurse Practitioner Family
DX: L53.9 Erythematous condition, unspecified (principal)

== ENCOUNTER → 2023-06-05 | Outpatient (REF) | payer OTHER | LOC: M WUC 19:15 | PROVIDERS: ATTEND Physician Assistant | DX: N30.01 Acute cystitis with hematuria (principal) ==

== ENCOUNTER → 2024-04-17 | Outpatient (CLI) | payer OTHER ==
[~2024-04-17] MED LIST changes: +BUDE90AE INH; +DOXY-441; +DOXY-441 PO; -DOXY-443; -DOXY-443 PO; +OMEP-611 PO; -OMEP20TA2 PO; -PULM90IN INH
== END ==
LOC: M WHC 07:21
PROVIDERS: ATTEND Nurse Practitioner Family
DX: Z12.31 Encounter for screening mammogram for malignant neoplasm of breast (principal); R92.333 Mammographic heterogeneous density, bilateral breasts

== ENCOUNTER → 2024-05-07 | Outpatient (CLI) | payer OTHER ==
[~2024-05-07] MED LIST changes: +PROHANCE 279.3MG/ML 15ML VIAL ONE; +PROHANCE 279.3MG/ML 5ML VIAL ONE
== END ==
LOC: M PLAIMG 09:33
PROVIDERS: ATTEND Internal Medicine Gastroenterology
DX: D37.6 Neoplasm of uncertain behavior of liver, gallbladder and bile ducts (principal); R93.2 Abnormal findings on diagnostic imaging of liver and biliary tract; K76.0 Fatty (change of) liver, not elsewhere classified

== ENCOUNTER → 2024-06-04 | Outpatient (CLI) | payer OTHER ==
[~2024-06-04] MED LIST changes: -PROHANCE 279.3MG/ML 15ML VIAL ONE; -PROHANCE 279.3MG/ML 5ML VIAL ONE
[2024-06-04 11:08] LABS: BASO # 0.1 10^3/uL (0.0-0.2); BASO % 0.8 % (0.0-1.0); EOS # 0.3 10^3/uL (0.0-0.5); EOS % 3.6 % (0.0-3.0); HEMATOCRIT 47.7 % (36.0-47.0); HEMOGLOBIN 15.6 g/dl (12.0-15.5); LYMPH # 4.5 10^3/uL (1.5-5.0); LYMPH % 48.7 % (24.0-44.0); MEAN CORPUSCULAR HEMOGLOBIN 30.2 pg (27.0-33.0); MEAN CORPUSCULAR HGB CONC 32.7 g/dl (32.0-36.5); MEAN CORPUSCULAR VOLUME 92.4 fl (80.0-96.0); MONO # 0.6 10^3/uL (0.0-0.8); NEUTROPHILS # 3.7 10^3/uL (1.5-8.5); NEUTROPHILS % 39.7 % (36.0-66.0); PLATELET COUNT, AUTOMATED 249 10^3/uL (150-450); RED BLOOD COUNT 5.16 10^6/uL (4.00-5.40); WHITE BLOOD COUNT 9.2 10^3/uL (4.0-10.0)
[2024-06-04 11:48] LABS: HEMOGLOBIN A1c 5.8 % (4.0-6.0)
[2024-06-04 11:56] LABS: ALBUMIN 3.9 G/DL (3.2-5.2); ALKALINE PHOSPHATASE 52 U/L (35-104); ALT/SGPT 20 U/L (7.0-40); AST/SGOT 10 U/L (<34); BILIRUBIN,TOTAL 0.9 MG/DL (0.3-1.2); BLOOD UREA NITROGEN 14 MG/DL (9-23); CALCIUM LEVEL 8.9 MG/DL (8.5-10.1); CARBON DIOXIDE LEVEL 28 MMOL/L (20-31); CHLORIDE LEVEL 107 MMOL/L (98-107); CHOLESTEROL LEVEL 205 MG/DL (<200); CHOLESTEROL RISK RATIO 4.23 (<5); CREATININE FOR GFR 0.76 MG/DL (0.55-1.30); GLOMERULAR FILTRATION RATE > 60.0 (>58); GLUCOSE, FASTING 102 MG/DL (60-100); HDL CHOLESTEROL 48.4 MG/DL (>40); LDL CHOLESTEROL 130.8 MG/DL (<100); NON-HDL-C 156.6 MG/DL; POTASSIUM SERUM 4.6 MMOL/L (3.5-5.1); SODIUM LEVEL 140 MMOL/L (136-145); TRIGLYCERIDES LEVEL 129 MG/DL (<150)
[2024-06-04 11:58] LABS: THYROID STIMULATING HORMONE 1.435 uIU/ML (0.55-4.78)
== END ==
LOC: M PLALAB 07:40
PROVIDERS: ATTEND Nurse Practitioner Family
DX: I10 Essential (primary) hypertension (principal); E78.2 Mixed hyperlipidemia; R73.03 Prediabetes; E78.5 Hyperlipidemia, unspecified; E55.9 Vitamin D deficiency, unspecified

== ENCOUNTER → 2024-06-18 | Outpatient (CLI) | payer OTHER ==
[2024-06-18 19:10] LABS: C REACTIVE PROTEIN QUANTITATIV < 0.50 MG/DL (<1.0); IRON (FE) 48 UG/DL (50-170); TOTAL IRON BINDING CAPACITY 321 UG/DL (250-425)
[2024-06-18 19:11] LABS: FERRITIN 237.8 NG/ML (7.3-270.7)
[2024-06-20 11:52] LABS: TRANSFERRIN 260 mg/dL (188-341)
[2024-06-20 17:56] LABS: ANA SCREEN, IFA NEGATIVE (NEGATIVE)
== END ==
LOC: M PLALAB 16:06
PROVIDERS: ATTEND Nurse Practitioner Family
DX: D75.1 Secondary polycythemia (principal)

== ENCOUNTER → 2024-08-01 | Outpatient (REF) | payer OTHER | LOC: M LAB REF 14:16 | PROVIDERS: ATTEND Physician Assistant | DX: B34.9 Viral infection, unspecified (principal) ==

== ENCOUNTER → 2024-08-02 | Outpatient (CLI) | payer OTHER | LOC: M PLAIMG 08:47 | DX: M75.41 Impingement syndrome of right shoulder (principal); M75.31 Calcific tendinitis of right shoulder ==

== ENCOUNTER → 2024-12-04 | Outpatient (REF) | payer OTHER | LOC: M SFHCPLAZ 10:13 | DX: L03.90 Cellulitis, unspecified (principal) ==

== ENCOUNTER → 2024-12-13 | Outpatient (CLI) | payer OTHER ==
[~2024-12-13] MED LIST changes: +ACET-897 PO; +MULTTAB61 PO; +VITA100093 PO
[2024-12-13 11:52] LABS: ALT/SGPT 24 U/L (7.0-40); AST/SGOT 15 U/L (<34); CALCIUM LEVEL 9.5 MG/DL (8.5-10.1); CARBON DIOXIDE LEVEL 28 MMOL/L (20-31); CHLORIDE LEVEL 103 MMOL/L (98-107); CHOLESTEROL LEVEL 200 MG/DL (<200); CHOLESTEROL RISK RATIO 3.69 (<5); CREATININE FOR GFR 0.80 MG/DL (0.55-1.30); GLOMERULAR FILTRATION RATE > 90.0 (>58); IRON (FE) 208 UG/DL (50-170); LDL CHOLESTEROL 110.2 MG/DL (<100); NON-HDL-C 145.8 MG/DL; POTASSIUM SERUM 4.6 MMOL/L (3.5-5.1); SODIUM LEVEL 142 MMOL/L (136-145); TRIGLYCERIDES LEVEL 178 MG/DL (<150)
[2024-12-13 11:56] LABS: FREE T4 1.36 NG/DL (0.89-1.76)
[2024-12-13 11:58] LABS: PLATELET COUNT, AUTOMATED 211 10^3/uL (150-450)
[2024-12-13 12:53] LABS: ATYPICAL LYMPH 6 % (0-5); BASOPHILS 3 % (0-1); EOSINOPHILS 1 % (0-3); LYMPHOCYTES 61 % (16-44); NEUTROPHILS 29 % (28-66)
[2024-12-13 12:55] LABS: PLATELET ESTIMATE NORMAL (NORMAL)
[2024-12-13 13:15] LABS: ESTIMATED AVERAGE GLUCOSE 114.0 MG/DL (60-110)
== END ==
LOC: M PLALAB 08:22
PROVIDERS: ATTEND Nurse Practitioner Family
DX: D75.1 Secondary polycythemia (principal); E78.2 Mixed hyperlipidemia; R73.03 Prediabetes; R53.83 Other fatigue

== ENCOUNTER 2024-12-25 06:54 | Day surgery (SDC) | payer OTHER ==
[~2024-12-25] VITALS: Ht 157.5 cm; Wt 80.2 kg
[~2024-12-25 06:54] MED LIST changes: -IBUP-1022 PO; +IBUP600T42 PO
[2024-12-25] MEDS ORDERED: LIDOCAINE 2% 100 MG/5 ML SDV (FOR ANES.) As Ordered ONE (07:03)
[2024-12-25] MEDS: LR 1,000 ML IV SCH (08:15)
[2024-12-25] MEDS: SCOPOLAMINE 1MG TRANSDERMAL PATCH TOP ONE (08:20)
[2024-12-25] MEDS ORDERED: ROCURONIUM BROMIDE 50MG/5ML VIAL As Ordered ONE (08:30)
[2024-12-25] MEDS: MIDAZOLAM INJ 2 MG/2 ML VIAL IV PRN (08:36)
[2024-12-25] MEDS ORDERED: ACETAMINOPHEN 1000MG/100ML IV BAG As Ordered ONE (08:37)
[2024-12-25] MEDS: LIDOCAINE 1% SDV 5 ML VIAL PN ONE (08:41)
[2024-12-25] MEDS: ROPIvacaine 0.5% 30ML VIAL PN ONE (08:41)
[2024-12-25] MEDS ORDERED: dexAMETHasone 4 MG/ML 1 ML VIAL As Ordered ONE (09:06)
[2024-12-25] MEDS ORDERED: ONDANSETRON 4MG 2ML VIAL As Ordered ONE (09:06)
[2024-12-25] MEDS: VANCOMYCIN 1000MG/20ML VIAL As Ordered ONE (09:14)
[2024-12-25] MEDS: ceFAZolin SOD 2 GM IV ONCE IV ONE (09:38)
[2024-12-25] MEDS ORDERED: PHENYLephrine 500MCG 5ML (100MCG/ML) SYRINGE As Ordered ONE (10:00)
[2024-12-25] MEDS: TRANEXAMIC ACID 100 MG/ML 10ML VIAL As Ordered ONE (10:28)
[2024-12-25] MEDS ORDERED: SUGAMMADEX SODIUM 200 MG/2 ML VIAL As Ordered ONE (11:57)
[2024-12-25] MEDS ORDERED: ONDANSETRON 4MG 2ML VIAL IV PRN (12:00)
[2024-12-25] MEDS ORDERED: LR 1,000 ML IV SCH (12:00)
[2024-12-25] MEDS ORDERED: HYDROMORPHONE HCL 0.5 MG/0.5 ML SYRINGE IV PRN (12:00)
[2024-12-25] MEDS ORDERED: HYDROmorphone HCL 2 MG/ML 1 ML VIAL As Ordered ONE (12:03)
[2024-12-25] MEDS: EPINEPHrine 1 MG/ML INJ 30 ML MD-VIAL As Ordered ONE (12:09)
[2024-12-25] MEDS: LIDOCAINE W/EPINEPHrine 1% 20 ML VIAL As Ordered ONE (12:10)
[2024-12-25 13:23] VITALS: BP 111/62; TEMP 96.8; O2SAT 95
== END 2024-12-25 14:20 | disposition home or self-care (01) ==
LOC: M SDC 06:54
PROVIDERS: ATTEND Neuromusculoskeletal Medicine, Sports Medicine
DX: M75.121 Complete rotator cuff tear or rupture of right shoulder, not specified as traumatic (principal); M75.41 Impingement syndrome of right shoulder; M19.011 Primary osteoarthritis, right shoulder; M25.711 Osteophyte, right shoulder; M75.21 Bicipital tendinitis, right shoulder; R73.03 Prediabetes; I10 Essential (primary) hypertension; J30.89 Other allergic rhinitis; K58.9 Irritable bowel syndrome, unspecified; Z79.899 Other long term (current) drug therapy; Z88.0 Allergy status to penicillin; Z91.018 Allergy to other foods; Z91.011 Allergy to milk products; Z90.710 Acquired absence of both cervix and uterus
CPT/HCPCS: 29824; 29826; 29827; C1713; J0131; J0169; J0690; J1100; J1171; J2250; J2371; J2405; J2795; J3010

== ENCOUNTER 2025-01-16 08:21 | Outpatient (RCR) | payer OTHER | END 2025-01-22 | LOC: M PT 08:21 | PROVIDERS: ATTEND Neuromusculoskeletal Medicine, Sports Medicine | DX: M75.41 Impingement syndrome of right shoulder (principal); M75.111 Incomplete rotator cuff tear or rupture of right shoulder, not specified as traumatic; M75.21 Bicipital tendinitis, right shoulder ==

== ENCOUNTER 2025-02-20 09:15 | Outpatient (RCR) | payer OTHER | END 2025-02-22 | LOC: M PT 09:15 | PROVIDERS: ATTEND Neuromusculoskeletal Medicine, Sports Medicine | DX: M75.41 Impingement syndrome of right shoulder (principal); M75.21 Bicipital tendinitis, right shoulder ==

== ENCOUNTER 2025-03-08 12:00 | Outpatient (RCR) | payer OTHER | END 2025-03-24 | LOC: M PT 12:00 | PROVIDERS: ATTEND Neuromusculoskeletal Medicine, Sports Medicine | DX: M75.41 Impingement syndrome of right shoulder (principal); M75.111 Incomplete rotator cuff tear or rupture of right shoulder, not specified as traumatic; M75.21 Bicipital tendinitis, right shoulder; Z47.89 Encounter for other orthopedic aftercare ==